=== PATIENT | female | born 2000 | race Caucasian/White ===

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

== ENCOUNTER 2018-08-23 09:07 | Emergency (ER) | payer OTHER ==
[2018-08-23] MEDS ORDERED: SODIUM CHLORIDE 0.9% 1,000 ML IV STA (09:25)
[2018-08-23] MEDS ORDERED: KETOROLAC 30 MG/ML 1 ML VIAL IVP STA (09:25)
--- NOTE | 2018-08-23 09:27 | ED ---
Abdominal Pain HPI - General Chief Complaint: Recheck/Abnormal Lab/Rx Stated Complaint: rib pain Time Seen by Provider: 08/23/18 09:20 Source: patient, RN notes reviewed, old records reviewed Mode of arrival: ambulatory Limitations: no limitations - History of Present Illness Initial Comments: This is a 18-year-old female the ER for evasive Doppler rib pain. Patient has no medical history takes no medications. She's had 2 weeks of bilateral rib pain and bilateral bowel pain with epigastric abdominal pain and nausea. No modifying factors for pain eating and drinking appropriately. Denies any trauma , no diarrhea. No prior history of pancreatitis no drug or alcohol abuse. Patient states the pain currently is left upper quadrant, left rib Complaint: abdominal pain -: week(s) (2) Location: diffuse, LUQ Radiation: epigastric Migration to: LUQ Severity: mild Severity scale (1-10): 4 Quality: cramping, aching Consistency: colicky Improves With: nothing Worsens With: nothing Context: other (None) Associated Symptoms: nausea - Related Data Home Medications Medication Instructions Recorded Confirmed No Known Home Medications 08/23/18 08/23/18 Allergies Allergy/AdvReac Type Severity Reaction Status Date / Time No Known Allergies Allergy Verified 08/23/18 09:10 Review of Systems ROS Statement: Those systems with pertinent positive or pertinent negative responses have been documented in the HPI. ROS Other: All systems not noted in ROS Statement are negative. Past Medical History Past Medical History: No Reported History History of Any Multi-Drug Resistant Organisms: None Reported Additional Past Surgical History / Comment(s): JAW SURGERY Past Psychological History: No Psychological Hx Reported Smoking Status: Current every day smoker Past Alcohol Use History: None Reported Past Drug Use History: None Reported General Exam Limitations: no limitations General appearance: alert, in no apparent distress Head exam: Present: atraumatic, normocephalic, normal inspection Eye exam: Present: normal appearance, PERRL, EOMI. Absent: scleral icterus, conjunctival injection, periorbital swelling ENT exam: Present: normal exam, mucous membranes moist Neck exam: Present: normal inspection. Absent: tenderness, meningismus, lymphadenopathy Respiratory exam: Present: normal lung sounds bilaterally. Absent: respiratory distress, wheezes, rales, rhonchi, stridor Cardiovascular Exam: Present: regular rate, normal rhythm, normal heart sounds. Absent: systolic murmur, diastolic murmur, rubs, gallop, clicks GI/Abdominal exam: Present: soft, normal bowel sounds. Absent: distended, tenderness, guarding, rebound, rigid Extremities exam: Present: normal inspection, full ROM, normal capillary refill. Absent: tenderness, pedal edema, joint swelling, calf tenderness Back exam: Present: normal inspection Neurological exam: Present: alert, oriented X3, CN II-XII intact Psychiatric exam: Present: normal affect, normal mood Skin exam: Present: warm, dry, intact, normal color. Absent: rash Course Vital Signs 08/23/18 09:09 Temperature 98.3 F Pulse Rate 93 Respiratory 20 Rate Blood Pressure 138/87 O2 Sat by Pulse 100 Oximetry - Reevaluation(s) Reevaluation #1: 08/23/18 09:43 Medical record is reviewed Reevaluation #2: 08/23/18 11:05 Mild improvement pain control, patient encouraged Motrin Tylenol at home Medical Decision Making - Medical Decision Making 18-year-old female the ER for evaluation of abdominal pain and rib pain. Lab work and x-rays are negative. This time patient can be discharged home to return if symptoms worsen, follow up with primary care - Lab Data Result diagrams: 08/23/18 10:02 08/23/18 10:02 Lab Results 08/23/18 08/23/18 08/23/18 Range/Units 10:02 10:02 10:02 WBC 6.6 (4.0-11.0) k/uL RBC 4.89 (3.80-5.40) m/uL Hgb 14.2 (11.4-16.0) gm/dL Hct 42.4 (34.0-46.0) % MCV 86.8 (80.0-100.0) fL MCH 29.0 (25.0-35.0) pg MCHC 33.4 (31.0-37.0) g/dL RDW 12.9 (11.5-15.5) % Plt Count 242 (150-450) k/uL Neutrophils % 65 % Lymphocytes % 25 % Monocytes % 7 % Eosinophils % 1 % Basophils % 0 % Neutrophils # 4.3 (1.3-7.7) k/uL Lymphocytes # 1.6 (1.0-4.8) k/uL Monocytes # 0.5 (0-1.0) k/uL Eosinophils # 0.1 (0-0.7) k/uL Basophils # 0.0 (0-0.2) k/uL Sodium 141 (137-145) mmol/L Potassium 4.3 (3.5-5.1) mmol/L Chloride 107 (98-107) mmol/L Carbon Dioxide 24 (22-30) mmol/L Anion Gap 10 mmol/L BUN 8 (7-17) mg/dL Creatinine 0.63 (0.52-1.04) mg/dL Est GFR (CKD-EPI)AfAm >90 (>60 ml/min/1.73 sqM) Est GFR (CKD-EPI)NonAf >90 (>60 ml/min/1.73 sqM) Glucose 89 (74-99) mg/dL Calcium 10.1 (8.4-10.2) mg/dL Total Bilirubin 0.5 (0.2-1.3) mg/dL AST 26 (14-36) U/L ALT 32 (9-52) U/L Alkaline Phosphatase 44 (38-126) U/L Total Protein 7.9 (6.3-8.2) g/dL Albumin 4.5 (3.5-5.0) g/dL Amylase <30 L (30-110) U/L Lipase 70 (23-300) U/L Urine Color Yellow Urine Appearance Clear (Clear) Urine pH 5.5 (5.0-8.0) Ur Specific [place] 1.023 (1.001-1.035) Urine Protein Trace H (Negative) Urine Glucose (UA) Negative (Negative) Urine Ketones Negative (Negative) Urine Blood Negative (Negative) Urine Nitrite Negative (Negative) Urine Bilirubin Negative (Negative) Urine Urobilinogen <2.0 (<2.0) mg/dL Ur Leukocyte Esterase Negative (Negative) - Radiology Data Radiology results: report reviewed (X-ray abdominal series and chest x-rays negative), image reviewed Disposition Clinical Impression: Abdominal pain, Rib pain Disposition: HOME SELF-CARE Instructions: Abdominal Pain (ED), Costochondritis (ED) Is patient prescribed a controlled substance at d/c from ED?: No Referrals: Keyla Collins MD [Primary Care Provider] - 1-2 days
[2018-08-23 10:25] LABS: Basophils % (A) 0 %; Eosinophils # (A) 0.1 k/uL (0-0.7); Eosinophils % (A) 1 %; HCT 42.4 % (34.0-46.0); HGB 14.2 gm/dL (11.4-16.0); Lymphocytes # (A) 1.6 k/uL (1.0-4.8); Lymphocytes % (A) 25 %; MCHC 33.4 g/dL (31.0-37.0); MCV 86.8 fL (80.0-100.0); Mean Platelet Volume 6.7; Monocytes # (A) 0.5 k/uL (0-1.0); Monocytes % (A) 7 %; Neutrophils # (A) 4.3 k/uL (1.3-7.7); Neutrophils % (A) 65 %; Platelet Count 242 k/uL (150-450); RBC 4.89 m/uL (3.80-5.40); RDW 12.9 % (11.5-15.5); WBC 6.6 k/uL (4.0-11.0)
--- NOTE | 2018-08-23 10:26 | XR ---
EXAMINATION TYPE: XR abdomen acute w cxr , 3 VIEWS DATE OF EXAM ORDERED: 08/23/2018 HISTORY: Left upper quadrant pain. COMPARISON: None. FINDINGS: The lungs are clear. Pleural space are clear. The heart is not enlarged. Within the abdomen, the abdominal gas pattern is normal. There is no evidence of obstruction or free air. No unusual calcifications are seen. IMPRESSION: NORMAL CHEST AND ABDOMEN.
[2018-08-23 10:35] LABS: ALT 32 U/L (9-52); AST 26 U/L (14-36); Albumin 4.5 g/dL (3.5-5.0); Alkaline Phosphatase 44 U/L (38-126); Amylase <30 U/L (30-110); Anion Gap 10 mmol/L; Appearance,Urine Clear (Clear); Bilirubin,Urine Negative (Negative); Blood Urea Nitrogen 8 mg/dL (7-17); Blood,Urine Negative (Negative); Calcium 10.1 mg/dL (8.4-10.2); Carbon Dioxide 24 mmol/L (22-30); Chloride 107 mmol/L (98-107); Color,Urine Yellow; Glucose 89 mg/dL (74-99); Glucose,Urine (UA) Negative (Negative); Ketones,Urine Negative (Negative); Leukocyte Esterase,Urine Negative (Negative); Lipase 70 U/L (23-300); Nitrite,Urine Negative (Negative); PH, Urine 5.5 (5.0-8.0); Potassium 4.3 mmol/L (3.5-5.1); Protein,Urine Trace (Negative); Sodium 141 mmol/L (137-145); Specific Gravity,Urine 1.023 (1.001-1.035); Total Bilirubin 0.5 mg/dL (0.2-1.3); Total Protein 7.9 g/dL (6.3-8.2); Urobilinogen,Urine <2.0 mg/dL (<2.0)
[2018-08-23 11:30] VITALS: BP 126/74; PULSE 87; RESP 18; TEMP 98
== END 2018-08-23 11:30 | disposition home or self-care (01) ==
LOC: EC 09:07
DX: R10.84 Generalized abdominal pain (principal); R07.81 Pleurodynia; R11.0 Nausea; F17.200 Nicotine dependence, unspecified, uncomplicated
CPT/HCPCS: 36415; 80053; 82150; 83690; 85025; 81003; 87086; 74022; 99284; 96374; 96361; J1885

== ENCOUNTER 2019-06-12 08:39 | Emergency (ER) | payer OTHER ==
[2019-06-12 08:43] VITALS: BP 132/85; PULSE 67; RESP 18; TEMP 98
--- NOTE | 2019-06-12 09:02 | ED ---
Upper Extremity HPI - General Chief Complaint: Extremity Injury, Upper Stated Complaint: Fell/Shoulder injury Time Seen by Provider: 06/12/19 08:43 Source: patient, RN notes reviewed Mode of arrival: ambulatory Limitations: no limitations - History of Present Illness Initial Comments: This a 19-year-old female presents emergency Department with chief complaint left arm pain. Patient states she was at a concert yesterday states that she fell. Patient has an abrasion to her left elbow but complains more pain in her mid humeral region. Patient states that she is up-to-date on her tetanus denies any head injury no loss conscious. Patient states that she has pain with movement is much better at rest. She denies any lower extremity injuries. - Related Data Previous Rx's Medication Instructions Recorded Ibuprofen [Motrin] 600 mg PO Q8HR PRN #30 tab 06/12/19 Allergies Allergy/AdvReac Type Severity Reaction Status Date / Time No Known Allergies Allergy Verified 06/12/19 08:57 Review of Systems ROS Statement: Those systems with pertinent positive or pertinent negative responses have been documented in the HPI. ROS Other: All systems not noted in ROS Statement are negative. Past Medical History Past Medical History: No Reported History History of Any Multi-Drug Resistant Organisms: None Reported Additional Past Surgical History / Comment(s): JAW SURGERY Past Psychological History: No Psychological Hx Reported Smoking Status: Current every day smoker Past Alcohol Use History: Occasional Past Drug Use History: None Reported General Exam Limitations: no limitations General appearance: alert, in no apparent distress Head exam: Present: atraumatic, normocephalic, normal inspection Eye exam: Present: normal appearance, PERRL, EOMI. Absent: scleral icterus, conjunctival injection, periorbital swelling Neck exam: Present: normal inspection, full ROM. Absent: tenderness Respiratory exam: Present: normal lung sounds bilaterally. Absent: respiratory distress, wheezes, rales, rhonchi, stridor Cardiovascular Exam: Present: regular rate, normal rhythm, normal heart sounds. Absent: systolic murmur, diastolic murmur, rubs, gallop, clicks Extremities exam: Present: other (There is an abrasion on the left elbow patient has no tenderness or dislocation. Patient has mild tenderness to the mid humeral to proximal humeral region, there is no ecchymosis mild swelling there is no tenderness over the clavicle no posterior shoulder tenderness pain with range of motion left shoulder) Skin exam: Present: warm, dry, intact, normal color. Absent: rash Course Vital Signs 06/12/19 08:40 Temperature 98.0 F Pulse Rate 67 Respiratory 18 Rate Blood Pressure 132/85 O2 Sat by Pulse 99 Oximetry Medical Decision Making - Medical Decision Making 19-year-old female presented for fall, left arm pain. X-rays reviewed there is no acute abnormality. Patient's left arm strain. Patient be discharged advised continued anti-inflammatories. Return parameters were discussed. Disposition Clinical Impression: Strain of left upper arm Disposition: HOME SELF-CARE Condition: Stable Instructions (If sedation given, give patient instructions): Shoulder Sprain (ED) Additional Instructions: Please return to the Emergency Department if symptoms worsen or any other concerns. Prescriptions: Ibuprofen [Motrin] 600 mg PO Q8HR PRN #30 tab PRN Reason: Pain Is patient prescribed a controlled substance at d/c from ED?: No Referrals: None,Stated [Primary Care Provider] - 1-2 days Jesse Carrion DO [Medical Doctor] - 1-2 days Time of Disposition: 09:35
--- NOTE | 2019-06-12 09:30 | XR ---
EXAMINATION TYPE: XR humerus LT DATE OF EXAM: 06/12/2019 COMPARISON: None HISTORY: Pain, fall abrasion at elbow TECHNIQUE: 2 view left humerus FINDINGS: No acute fracture or dislocation is evident. Soft tissues appear within normal limits. IMPRESSION: 1. Normal left humerus.
== END 2019-06-12 10:08 | disposition home or self-care (01) ==
LOC: EC 08:39
DX: S46.912A Strain of unspecified muscle, fascia and tendon at shoulder and upper arm level, left arm, initial encounter (principal); S50.312A Abrasion of left elbow, initial encounter; F17.200 Nicotine dependence, unspecified, uncomplicated; W19.XXXA Unspecified fall, initial encounter
CPT/HCPCS: 99283

== ENCOUNTER 2020-01-25 18:31 | Emergency (ER) | payer OTHER ==
[2020-01-25 18:40] VITALS: BP 133/87; PULSE 86; RESP 18; TEMP 97.8
[2020-01-25] MEDS ORDERED: CEPHALEXIN 500MG STARTER PACK 4 CAP BTL PO STA (18:54)
[2020-01-25] MEDS ORDERED: SULFAMETH-TMP DS STARTER PACK 2 TAB BTL PO STA (18:54)
--- NOTE | 2020-01-25 18:55 | ED ---
Lower Extremity Injury HPI - General Chief Complaint: Extremity Injury, Lower Stated Complaint: rt knee infection Time Seen by Provider: 01/25/20 18:39 Source: patient Mode of arrival: ambulatory Limitations: no limitations - History of Present Illness Initial Comments: 19 you feel presents today for chief complaint of possible infection of the right anterior knee. Patient states she fell and sustained an abrasion to the anterior right knee. Patient states it has been redm and now draining pus. She denies any significant spread of redness. Patient denies fevers or general malaise. Patient denies any decreased range of motion of the knee joint or knee joint swelling. Remaining review systems negative patient denies any history of MRSA. Upon arrival patient appears well no acute distress. - Related Data Previous Rx's Medication Instructions Recorded Ibuprofen [Motrin] 600 mg PO Q8HR PRN #30 tab 06/12/19 Cephalexin [Keflex] 500 mg PO Q6HR 7 Days #28 cap 01/25/20 Sulfamethox-Tmp 800-160Mg [Bactrim 1 tab PO Q12HR 7 Days #14 tab 01/25/20 DS 800-160 mg] Allergies Allergy/AdvReac Type Severity Reaction Status Date / Time No Known Allergies Allergy Verified 01/25/20 18:40 Review of Systems ROS Statement: Those systems with pertinent positive or pertinent negative responses have been documented in the HPI. ROS Other: All systems not noted in ROS Statement are negative. Past Medical History Past Medical History: No Reported History History of Any Multi-Drug Resistant Organisms: None Reported Past Surgical History: No Surgical Hx Reported Additional Past Surgical History / Comment(s): JAW SURGERY Past Psychological History: ADD/ADHD, Anxiety Smoking Status: Current every day smoker Past Alcohol Use History: Occasional Past Drug Use History: None Reported General Exam - General Exam Comments Initial Comments: General: The patient is awake and alert, in no distress Eye: +3 mm pupils are equal, round and reactive to light, extra-ocular movements are intact. No nystagmus. There is normal conjunctiva bilaterally. No signs of icterus. Gastrointestinal: Soft, non-distended, non-tender abdomen without masses or organomegaly noted. There is no rebound or guarding present. Musculoskeletal: Normal ROM, no tenderness. Strength 5/5. Sensation intact. Radial pulses equal bilaterally 2+. Neurological: A&O x 3. CN II-XII intact grossly, There are no obvious motor or sensory deficits. Coordination appears grossly intact. Speech is normal. Skin: Skin is warm and dry and no rashes. Abrasion right anterior knee, surrounding redness, mild swelling of skin, no joint swelling, FULL ROM without tenderness right knee. No significant spread of redness. Psychiatric: Cooperative, appropriate mood & affect, normal judgment. Limitations: no limitations Course Vital Signs 01/25/20 18:37 Temperature 97.8 F Pulse Rate 86 Respiratory 18 Rate Blood Pressure 133/87 O2 Sat by Pulse 99 Oximetry Medical Decision Making - Medical Decision Making 19 you feel presenting today for chief complaint of right knee abrasion with suspected infection. There is evidence of cellulitis with purulent drainage no couple fluctuance are developed abscess. Spontaneous a draining. Patient was started on Keflex and Bactrim I discussed return parameters importance of monitoring redness as well as increasing pain or swelling of the knee. This does not appear to be septic joint. Patient flexes at the knee without any difficulty. No fevers the patient does not appear septic. Patient was discharged to appear well after discussi ngcase with Mirna maloney - Lab Data Lab Results 01/25/20 Range/Units 19:02 Urine HCG, Qual Not Detected (Not Detectd) Disposition Clinical Impression: Knee abrasion, Cellulitis Disposition: HOME SELF-CARE Condition: Good Instructions (If sedation given, give patient instructions): Abrasion (ED), Cellulitis (ED) Additional Instructions: Please use medication as discussed. Please follow-up with family doctor in the next 2 days. Please return to emergency room if the symptoms increase or worsen or for any other concerns. Prescriptions: Sulfamethox-Tmp 800-160Mg [Bactrim DS 800-160 mg] 1 tab PO Q12HR 7 Days #14 tab Cephalexin [Keflex] 500 mg PO Q6HR 7 Days #28 cap Is patient prescribed a controlled substance at d/c from ED?: No Referrals: None,Stated [Primary Care Provider] - 1-2 days Time of Disposition: 15:45
== END 2020-01-25 19:35 | disposition home or self-care (01) ==
LOC: EC 18:31
DX: S80.211A Abrasion, right knee, initial encounter (principal); L03.115 Cellulitis of right lower limb; F17.200 Nicotine dependence, unspecified, uncomplicated; W19.XXXA Unspecified fall, initial encounter
CPT/HCPCS: 81025; 99283

== ENCOUNTER 2020-12-31 07:01 | Emergency (ER) | payer OTHER ==
[2020-12-31 07:11] VITALS: BP 108/75; PULSE 73; RESP 18; TEMP 98.2
[2020-12-31] MEDS ORDERED: KETOROLAC 15 MG/ML 1 ML VIAL IVP STA (07:59)
--- NOTE | 2020-12-31 08:02 | ED ---
General Adult HPI - General Chief complaint: Back Pain/Injury Stated complaint: Back Pain Time Seen by Provider: 12/31/20 07:43 Source: patient, RN notes reviewed Mode of arrival: ambulatory Limitations: no limitations - History of Present Illness Initial comments: Patient is a pleasant 20-year-old female presenting to the emergency Department with left-sided thoracic back pain. Patient had an episode around 3 weeks ago that resolved. This episode has been intermittent over the past 3 days. Patient states there is always mild discomfort however she is having muscle spasms near the area of the left scapula. Symptoms do increase with deep breaths. Otherwise no dyspnea. There is also some increase with position changes and movement. No history of chronic similar symptoms. No fevers. No cough. No leg pain or leg swelling. Patient is a smoker. - Related Data Home Medications Medication Instructions Recorded Confirmed Acetaminophen Tab [Tylenol] 650 mg PO Q4H PRN 12/31/20 12/31/20 Previous Rx's Medication Instructions Recorded Cyclobenzaprine [Flexeril] 10 mg PO TID PRN #12 tablet 12/31/20 Ibuprofen [Motrin] 600 mg PO Q6HR PRN #20 tab 12/31/20 Allergies Allergy/AdvReac Type Severity Reaction Status Date / Time No Known Allergies Allergy Verified 12/31/20 09:25 Review of Systems ROS Statement: Those systems with pertinent positive or pertinent negative responses have been documented in the HPI. ROS Other: All systems not noted in ROS Statement are negative. Constitutional: Denies: fever Eyes: Denies: eye pain ENT: Denies: ear pain Respiratory: Denies: cough, dyspnea Cardiovascular: Denies: edema Endocrine: Denies: fatigue Gastrointestinal: Denies: abdominal pain Genitourinary: Denies: dysuria Musculoskeletal: Reports: as per HPI Skin: Denies: rash Neurological: Denies: weakness Past Medical History Past Medical History: No Reported History History of Any Multi-Drug Resistant Organisms: None Reported Past Surgical History: No Surgical Hx Reported Additional Past Surgical History / Comment(s): JAW SURGERY Past Psychological History: ADD/ADHD, Anxiety Smoking Status: Current every day smoker Past Alcohol Use History: Occasional Past Drug Use History: None Reported General Exam Limitations: no limitations General appearance: alert, in no apparent distress Head exam: Present: normocephalic Eye exam: Present: normal appearance Neck exam: Present: normal inspection Respiratory exam: Present: normal lung sounds bilaterally Cardiovascular Exam: Present: regular rate, normal rhythm GI/Abdominal exam: Present: soft. Absent: tenderness Extremities exam: Present: normal inspection. Absent: pedal edema, calf tenderness Back exam: Present: other (Mild tenderness left trapezius region, between the vertebrae and scapula approximately T3 through T7/8.) Neurological exam: Present: alert. Absent: motor sensory deficit Psychiatric exam: Present: normal affect, normal mood Skin exam: Present: normal color Course Vital Signs 12/31/20 07:04 Temperature 98.2 F Pulse Rate 73 Respiratory 18 Rate Blood Pressure 108/75 O2 Sat by Pulse 98 Oximetry EKG Findings - EKG Comments: EKG Findings:: Normal sinus rhythm at 69. NC 1:30. QRS 88. QT 398. QTC 426. Normal axis. Low QRS. No acute ST change. Medical Decision Making - Medical Decision Making Patient reevaluated and does feel somewhat better. Patient updated on results. - Lab Data Lab Results 12/31/20 Range/Units 08:48 D-Dimer 0.21 (<0.60) mg/L FEU - Radiology Data Radiology results: image reviewed (Chest x-ray shows no acute process) Disposition Clinical Impression: Thoracic back pain Disposition: HOME SELF-CARE Condition: Stable Instructions (If sedation given, give patient instructions): Back Pain (ED) Additional Instructions: Please do follow-up with primary care physician in the next couple days for recheck. Return for difficulty in breathing, fevers, worsening or change in symptoms or other concerns. Prescription for Motrin 600 and muscle relaxers have been sent to your pharmacy[facility] Prescriptions: Cyclobenzaprine [Flexeril] 10 mg PO TID PRN #12 tablet PRN Reason: Pain Ibuprofen [Motrin] 600 mg PO Q6HR PRN #20 tab PRN Reason: Pain Is patient prescribed a controlled substance at d/c from ED?: No Referrals: Mainor Maldonado [STAFF PHYSICIAN] - 1-2 days Time of Disposition: 09:29
--- NOTE | 2020-12-31 09:15 | XR ---
EXAMINATION TYPE: XR chest 2V DATE OF EXAM: 12/31/2020 COMPARISON: 11/28/2010 HISTORY: Chest pain TECHNIQUE: Frontal and lateral views of the chest are obtained. FINDINGS: There is no focal air space opacity. No evidence for pneumothorax. No pleural effusion. The cardiac silhouette size is within normal limits. The osseous structures are grossly intact. IMPRESSION: 1. No acute cardiopulmonary process.
== END 2020-12-31 09:58 | disposition home or self-care (01) ==
LOC: EC 07:01
DX: M54.6 Pain in thoracic spine (principal); F17.200 Nicotine dependence, unspecified, uncomplicated; Z79.1 Long term (current) use of non-steroidal anti-inflammatories (NSAID); F41.9 Anxiety disorder, unspecified
CPT/HCPCS: 36415; 93005; 85379; 71046; 99284; 96374; J1885

== ENCOUNTER 2024-08-12 16:33 | Outpatient (CLI) | payer OTHER ==
[2024-08-12 17:07] LABS: Basophils % (A) 0 %; Eosinophils # (A) 0.1 k/uL (0-0.7); Eosinophils % (A) 1 %; HCT 37.7 % (34.0-46.0); HGB 12.4 gm/dL (11.4-16.0); Lymphocytes # (A) 1.5 k/uL (1.0-4.8); Lymphocytes % (A) 13 %; MCH 29.6 pg (25.0-35.0); MCHC 32.9 g/dL (31.0-37.0); MCV 89.9 fL (80.0-100.0); Mean Platelet Volume 7.4; Monocytes # (A) 0.6 k/uL (0-1.0); Monocytes % (A) 5 %; Neutrophils # (A) 9.4 k/uL (1.3-7.7); Neutrophils % (A) 80 %; Platelet Count 273 k/uL (150-450); RBC 4.19 m/uL (3.80-5.40); RDW 13.2 % (11.5-15.5); WBC 11.7 k/uL (3.8-10.6)
[2024-08-12 17:19] LABS: Uric Acid 2.4 mg/dL (3.7-7.4)
[2024-08-12 17:22] LABS: Appearance,Urine Cloudy (Clear); Bilirubin,Urine Negative (Negative); Blood,Urine Negative (Negative); Color,Urine Colorless; Glucose,Urine (UA) Negative (Negative); Ketones,Urine Negative (Negative); Leukocyte Esterase,Urine Negative (Negative); Nitrite,Urine Negative (Negative); Protein,Urine Negative (Negative); RBC,Urine 1 /hpf (0-5); Specific Gravity,Urine 1.006 (1.001-1.035); Squamous Epithelial Cell,Urine 7 /hpf (0-4); Urobilinogen,Urine <2.0 mg/dL (<2.0); WBC,Urine 2 /hpf (0-5)
[2024-08-12 17:40] VITALS: BP 127/73; PULSE 74; RESP 18; TEMP 98
== END 2024-08-12 17:40 | disposition home or self-care (01) ==
LOC: FBPOP 16:33
PROVIDERS: ATTEND Obstetrics & Gynecology
DX: O14.93 Unspecified pre-eclampsia, third trimester (principal); Z3A.35 35 weeks gestation of pregnancy; F17.210 Nicotine dependence, cigarettes, uncomplicated
CPT/HCPCS: 59025; 81001; 84450; 84460; 84550; 85025; 99213

== ENCOUNTER 2024-08-13 07:45 | Inpatient (IN) | payer OTHER ==
[2024-08-13] MEDS ORDERED: CARBOPROST TROMETHAMINE 250 MCG/ML 1 ML AMP IM PRN (08:47)
[2024-08-13] MEDS ORDERED: METHYLERGONOVINE 0.2 MG/ML 1 ML AMP IM PRN (08:47)
[2024-08-13] MEDS ORDERED: LIDOCAINE 0.5% (PF) 5 MG/ML (50 ML SDV) SQ PRN (08:47)
[2024-08-13] MEDS ORDERED: miSOPROStoL 200 MCG TAB RECTAL PRN (08:47)
[2024-08-13] MEDS ORDERED: OXYTOCIN 10 UNIT/ML 1 ML VIAL IM PRN (08:47)
[2024-08-13] MEDS ORDERED: TRANEXAMIC 1,000 MG/100ML-NACL 1,000 MG in EMPTY BAG 1 BAG IV PRN (08:47)
[2024-08-13] MEDS ORDERED: TERBUTALINE 1 MG/ML VIAL SQ PRN (08:47)
[2024-08-13] MEDS ORDERED: miSOPROStoL 200 MCG TAB PO PRN (08:47)
[2024-08-13] MEDS ORDERED: BUTORPHANOL 1 MG/ML 1 ML VIAL IV PRN (08:50)
[2024-08-13 09:09] LABS: Amphetamine Screen,Urine Not Detected (NotDetected); Barbiturate Screen,Urine Not Detected (NotDetected); Benzodiazepines Screen,Urine Not Detected (NotDetected); Cocaine Screen,Urine Not Detected (NotDetected); Methadone Screen, Urine Not Detected (NotDetected); Opiate Screen,Urine Not Detected (NotDetected); Oxycodone Screen, Urine Not Detected (NotDetected); Phencyclidine Screen,Urine Not Detected (NotDetected); Tricyclic Antidepressant,Urine Not Detected (NotDetected); Urn Cannabinoid Scrn Detected (NotDetected)
[2024-08-13] MEDS: LACTATED RINGERS 1,000 ML IV SCH (09:45)
[2024-08-13] MEDS: PENICILLIN G POTASSIUM 5,000,000 UNIT in DEXTROSE 5% IN WATER 100 ML IVPB STA (09:52)
[2024-08-13] MEDS: OXYTOCIN 30 UNITS/500 ML NS 30 UNIT in SALINE 1 500ML.BAG IV SCH (10:00)
[2024-08-13 10:14] LABS: Basophils % (A) 0 %; Eosinophils # (A) 0.1 k/uL (0-0.7); Eosinophils % (A) 1 %; HCT 39.6 % (34.0-46.0); HGB 13.2 gm/dL (11.4-16.0); Lymphocytes # (A) 1.3 k/uL (1.0-4.8); Lymphocytes % (A) 13 %; MCH 29.7 pg (25.0-35.0); MCHC 33.3 g/dL (31.0-37.0); MCV 89.2 fL (80.0-100.0); Mean Platelet Volume 7.5; Monocytes # (A) 0.7 k/uL (0-1.0); Monocytes % (A) 7 %; Neutrophils # (A) 8.1 k/uL (1.3-7.7); Neutrophils % (A) 79 %; Platelet Count 307 k/uL (150-450); RBC 4.44 m/uL (3.80-5.40); RDW 13.3 % (11.5-15.5); WBC 10.3 k/uL (3.8-10.6)
--- NOTE | 2024-08-13 11:01 | P.HPOB ---
History of Present Illness H&P Date: 08/13/24 Chief Complaint: 35-2/7 weeks, spontaneous rupture of membranes, labor The patient is a 24-year-old 1 para 0 admitted at 35-2/7 weeks as established by last menstrual period and confirmed by early ultrasound. She is admitted with documented spontaneous rupture of membranes for clear fluid. On admission, all signs are reassuring with a category 1 heart rate tracing. Her has reportedly been uncomplicated. She is a late transfer to our office having not been seen by myself yet in the office but seen by the nursing staff yesterday. She had most of her care carried out in [facility] and then her physician apparently declined to further see her as she missed several appointments in a row secondary to car problems. Group B strep status is at this time undetermined. Obstetrical history: 1 para 0 with current statistics listed in history of present illness. EDC of 09/15/2024 was determined by last menstrual period and confirmed by 8-week ultrasound. Laboratory workup demonstrates a blood type of B+ with a negative antibody screen. Rubella status is immune. The remainder of the laboratory workup was within normal limits. 1 hour Glucola was normal and group B strep status is not yet determined. Gynecologic history: Unremarkable with no history of any infections to include STDs. Review of Systems Review of systems is confined to history of present illness. Past Medical History Past Medical History: No Reported History History of Any Multi-Drug Resistant Organisms: None Reported Past Surgical History: No Surgical Hx Reported Additional Past Surgical History / Comment(s): JAW SURGERY 2014 Past Anesthesia/Blood Transfusion Reactions: No Reported Reaction Past Psychological History: ADD/ADHD, Anxiety Smoking Status: Current every day smoker Past Alcohol Use History: Occasional Past Drug Use History: None Reported - Past Family History Mother Family Medical History: No Reported History Medications and Allergies Home Medications Medication Instructions Recorded Confirmed Type Acetaminophen Tab [Tylenol] 650 mg PO Q4H PRN 12/31/20 08/13/24 History Pedi Multivit No.25/Folic Acid 1 tab PO ONCE 08/13/24 08/13/24 History [Flintstones Multivit Chew Tab] Allergies Allergy/AdvReac Type Severity Reaction Status Date / Time No Known Allergies Allergy Verified 08/13/24 08:07 Exam Vital Signs Temp Pulse Resp BP Pulse Ox 08/13/24 08:57 97.9 F 61 16 141/91 98 08/13/24 08:06 97.9 F 61 16 141/91 98 Intake and Output 08/12/24 08/13/24 08/13/24 22:59 06:59 14:59 Other: Weight 92.079 kg In general, this is a well-developed, well-nourished white female in no acute distress. Her heart has a regular rhythm and rate without murmur. Her lungs are clear to auscultation bilaterally in all langley. Her abdomen is gravid, nondistended, has normal active bowel sounds, soft, nontender, and without any palpable masses aside from the uterine fundus. Her extremities are without any cyanosis, clubbing, or significant edema and are nontender to palpation bilaterally. Digital cervical examination performed by the nursing staff demonstrates her cervix to be 1+ centimeters dilated, 60% effaced, with the vertex and presentation at -2 station. Spontaneous rupture of membranes is confirmed. Results Result Diagrams: 08/13/24 09:48 Abnormal Lab Results - Last 24 Hours (Table) 08/13/24 08/13/24 Range/Units 08:35 09:48 Neutrophils # 8.1 H (1.3-7.7) k/uL U Marijuana (THC) Screen Detected H (NotDetected) Assessment and Plan (1) premature rupture of membranes Current Visit: Yes Status: Acute Code(s): O42.919 - PRETRM KEL ROM, UNSP TIME BETW RUPT AND ONST LABR, UNSP TRI SNOMED Code(s): 662390557 Plan: The patient has been admitted for active management of labor. She has had antibiotic prophylaxis started for unknown group B strep status. She additionally has had Pitocin augmentation started. She will have close maternal and surveillance and expectant management will be practiced. She is a good candidate for either IV or epidural analgesia, whichever she may choose. I have discussed with her that there is a moderate to high risk of short-term issues with prematurity that may require the infant to remain in the nursery for a period of time, likely longer than the patient's hospital stay.
[2024-08-13] MEDS ORDERED: fentaNYL (PF) 50 MCG/ML 5 ML AMP ONE (14:05)
[2024-08-13] MEDS ORDERED: ROPIVACAINE 5 MG/ML 30 ML VIAL ONE (14:05)
[2024-08-13] MEDS ORDERED: SODIUM CHLORIDE 0.9% 250 ML BAG ONE (14:05)
[2024-08-13] MEDS: PENICILLIN G POTASSIUM 2,500,000 UNIT in DEXTROSE 5% IN WATER 100 ML IVPB SCH (15:03)
[2024-08-13] MEDS ORDERED: ZOLPIDEM 5 MG TAB PO PRN (20:16)
[2024-08-13] MEDS ORDERED: diphenhydrAMINE 50 MG CAP PO PRN (20:16)
[2024-08-13] MEDS ORDERED: LANOLIN CREAM 1 GM TUBE TOPICAL PRN (20:16)
[2024-08-13] MEDS ORDERED: HYDROCORTISONE 2.5% RECTAL CREAM 30 GM TUBE RECTAL PRN (20:16)
[2024-08-13] MEDS ORDERED: SIMETHICONE 80 MG CHEWABLE PO PRN (20:16)
[2024-08-13] MEDS ORDERED: BENZOCAINE/MENTHOL SPRAY 1 GM/SPRAY AEROSOL TOPICAL PRN (20:16)
[2024-08-13] MEDS ORDERED: diphenhydrAMINE 50 MG/ML 1 ML VIAL IVP PRN ×2 (20:16)
[2024-08-13] MEDS ORDERED: diphenhydrAMINE 25 MG CAP PO PRN (20:16)
[2024-08-13] MEDS: ROPIVACAINE 225 MG, fentaNYL (PF). 450 MCG in SODIUM CHLORIDE 0.9% 171 ML EPIDURAL ONE (20:21)
[2024-08-13] MEDS: IBUPROFEN 800 MG TAB PO SCH (20:28)
[2024-08-14] MEDS: ACETAMINOPHEN TAB 500 MG TAB PO SCH (00:21)
[2024-08-14] MEDS: SENNOSIDES-DOCUSATE SODIUM 1 EACH TAB PO SCH (08:04)
[2024-08-14 08:15] LABS: Basophils % (A) 0 %; Eosinophils % (A) 0 %; HCT 38.6 % (34.0-46.0); HGB 12.2 gm/dL (11.4-16.0); Lymphocytes # (A) 1.6 k/uL (1.0-4.8); Lymphocytes % (A) 12 %; MCH 28.4 pg (25.0-35.0); MCHC 31.5 g/dL (31.0-37.0); MCV 90.2 fL (80.0-100.0); Mean Platelet Volume 7.2; Monocytes # (A) 0.9 k/uL (0-1.0); Monocytes % (A) 7 %; Neutrophils # (A) 10.5 k/uL (1.3-7.7); Neutrophils % (A) 80 %; Platelet Count 265 k/uL (150-450); RBC 4.28 m/uL (3.80-5.40); RDW 13.3 % (11.5-15.5); WBC 13.2 k/uL (3.8-10.6)
--- NOTE | 2024-08-14 08:47 | P.PROBDLV ---
Vaginal Delivery Note - . Vaginal Delivery Note: 24-year-old presented at 35 weeks and 4 days complaining of spontaneous rupture of membranes. Her cervix was 1-2 cm dilated, 60% effaced, -2 station. She was not charly and heart tones are category 1. Pitocin augmentation was started. The patient progressed slowly throughout the day and was completely dilated by 1825. She pushed, and delivered a viable female over intact perineum under epidural anesthesia at 192. Head delivered OA, anterior shoulder delivered gentle downward guidance followed by posterior shoulder and rest of body. Nose and mouth bulb suctioned, cord clamped and cut, infant placed mother's abdomen. Apgars at 1 minute was 5, 5 minutes it was 9 at 10 minutes 9. Weight 3 lbs. 13 oz. Placenta delivered spontaneous a, intact with three-vessel cord at 192. Vagina, cervix, perineum inspected. No lacerations noted. Estimated blood loss 50 mL. Mother and baby in stable condition.
--- NOTE | 2024-08-14 08:48 | P.PNOBGVD ---
Subjective - Subjective Principal diagnosis: S/P normal vaginal delivery day #1 Interval history: Patient seen and examined. Denies nausea, vomiting, chest pain, shortness of breath or calf pain. Patient reports: Reports appetite normal, Reports voiding normally, Reports pain well controlled, Reports ambulating normally Objective - Latest Vital Signs Latest vital signs: Vital Signs Temp Pulse Resp BP Pulse Ox 08/14/24 07:51 98.4 F 77 16 157/87 08/14/24 00:00 98.5 F 71 16 148/84 08/13/24 21:25 97.2 F L 83 16 138/78 08/13/24 21:10 83 16 138/77 08/13/24 20:55 90 16 144/85 08/13/24 20:40 86 16 140/72 08/13/24 20:25 88 16 145/72 08/13/24 20:10 91 16 151/79 08/13/24 19:55 86 16 149/78 08/13/24 19:40 102 H 16 215/99 08/13/24 19:25 97.4 F L 106 H 16 153/118 08/13/24 08:57 97.9 F 61 16 141/91 98 Intake and Output 08/13/24 08/14/24 08/14/24 22:59 06:59 14:59 Intake Total 319.433 Output Total 396 Balance -76.567 Intake: Intake, IV Titration 319.433 Amount Oxytocin 30 Units/500 ml 319.433 Ns 30 unit In Saline 1 500ml.bag @ Per Protocol IV .Q0M [facility] Rx#:[id number] Output: Urine 20 Emesis 50 Output, Quantitative 326 Blood Loss Other: # Voids 1 1 1 - Exam Lungs: bilateral: normal Chest: Normal S1, Normal S2 Extremities: Present: normal Abdomen: Present: normal appearance, soft Uterus: Present: normal, firm - Labs Labs: Abnormal Lab Results - Last 24 Hours (Table) 08/13/24 08/13/24 08/14/24 Range/Units 08:35 09:48 07:30 WBC 13.2 H (3.8-10.6) k/uL Neutrophils # 8.1 H 10.5 H (1.3-7.7) k/uL U Marijuana (THC) Screen Detected H (NotDetected) Assessment and Plan (1) Status post normal vaginal delivery Current Visit: Yes Status: Acute Code(s): [id number] - SNOMED Code(s): 212258566 Plan: 1. cont pp care
[2024-08-15] MEDS: LABETALOL 100 MG TAB PO SCH (00:49)
--- NOTE | 2024-08-15 09:09 | P.PNOBGVD ---
Subjective - Subjective Principal diagnosis: Status post normal vaginal delivery day #2 Interval history: Patient seen and examined this morning. She had some elevated blood pressures overnight and this morning. no headache, vision changes or RUQ pain. We'll start her on labetalol 100 mg twice a day. She is also complaining of some anxiety especially with the baby being in the nursery and her boyfriend needs a heart catheterization. Her grandmother who was like a mother to her 3 months ago and she is still processing this. We talked about Zoloft and we will start that today. Patient reports: Reports appetite normal, Reports voiding normally, Reports pain well controlled, Reports ambulating normally Objective - Latest Vital Signs Latest vital signs: Vital Signs Temp Pulse Resp BP 08/15/24 07:34 98.5 F 71 16 156/95 08/15/24 04:01 65 16 142/87 08/15/24 00:00 98.0 F 80 16 167/99 08/14/24 20:00 98.7 F 90 145/88 08/14/24 16:00 98.3 F 90 16 150/93 - Exam Lungs: bilateral: normal Chest: Normal S1, Normal S2 Extremities: Present: normal Abdomen: Present: normal appearance, soft Uterus: Present: normal, firm Assessment and Plan (1) Status post normal vaginal delivery Current Visit: Yes Status: Acute Code(s): [id number] - SNOMED Code(s): 381518793 (2) Gestational hypertension Current Visit: Yes Status: Acute Code(s): O13.9 - GESTATIONAL HTN W/O SIGNIFICANT PROTEINURIA, UNSP TRIMESTER SNOMED Code(s): 26684676 Plan: 1. labetalol 100mg bid 2. zoloft 50mg 3. monitor bp closeley
[2024-08-15] MEDS: SERTRALINE 50 MG TAB PO SCH (12:39)
[2024-08-15] MEDS: LABETALOL 200 MG TAB PO STA (20:11)
[2024-08-16 01:37] LABS: Basophils % (A) 0 %; Eosinophils # (A) 0.1 k/uL (0-0.7); Eosinophils % (A) 1 %; HCT 34.3 % (34.0-46.0); HGB 11.6 gm/dL (11.4-16.0); Lymphocytes # (A) 1.2 k/uL (1.0-4.8); Lymphocytes % (A) 14 %; MCH 29.8 pg (25.0-35.0); MCHC 33.7 g/dL (31.0-37.0); MCV 88.4 fL (80.0-100.0); Mean Platelet Volume 7.2; Monocytes # (A) 0.4 k/uL (0-1.0); Monocytes % (A) 5 %; Neutrophils # (A) 6.4 k/uL (1.3-7.7); Neutrophils % (A) 78 %; Platelet Count 255 k/uL (150-450); RBC 3.88 m/uL (3.80-5.40); RDW 13.3 % (11.5-15.5); WBC 8.2 k/uL (3.8-10.6)
[2024-08-16 01:39] LABS: Appearance,Urine Clear (Clear); Bilirubin,Urine Negative (Negative); Blood,Urine Small (Negative); Color,Urine Colorless; Glucose,Urine (UA) Negative (Negative); Ketones,Urine Negative (Negative); Leukocyte Esterase,Urine Negative (Negative); Mucus,Urine Rare /hpf; Nitrite,Urine Negative (Negative); Protein,Urine Trace (Negative); RBC,Urine 1 /hpf (0-5); Specific Gravity,Urine 1.018 (1.001-1.035); Squamous Epithelial Cell,Urine <1 /hpf (0-4); Urobilinogen,Urine <2.0 mg/dL (<2.0); WBC,Urine 1 /hpf (0-5)
[2024-08-16 01:47] LABS: INR 0.9 (<1.2); Partial Thromboplastin Time 23.1 sec (22.0-30.0); Prothrombin Time 9.9 sec (10.0-12.5)
[2024-08-16 01:49] LABS: ALT 21 U/L (4-34); AST 37 U/L (14-36); African American GFR (CKD) >90 (>60 ml/min/1.73 sqM); Blood Urea Nitrogen 12 mg/dL (7-17); LDH 202 U/L (120-246); Non-African American GFR(CKD) >90 (>60 ml/min/1.73 sqM); Uric Acid 3.2 mg/dL (3.7-7.4)
[2024-08-16 01:51] LABS: Creatinine,Urine Random 91.6 mg/dL; Protein/Creatinine Ratio,Urine 0.24
[2024-08-16] MEDS: LABETALOL 200 MG TAB PO STA (02:59)
[2024-08-16] MEDS ORDERED: LABETALOL 100 MG TAB PO SCH (08:00)
[2024-08-16] MEDS: LABETALOL 200 MG TAB PO SCH ×2 (08:42→16:26)
--- NOTE | 2024-08-16 09:21 | P.PNOBGVD ---
Subjective - Subjective Interval history: Patient denies any signs or symptoms of hypertension or preeclampsia at this time. Patient reports: Reports appetite normal, Reports voiding normally, Reports pain well controlled, Reports ambulating normally : doing well, in NICU Objective - Latest Vital Signs Latest vital signs: Vital Signs Temp Pulse Resp BP 08/16/24 08:31 98.6 F 74 16 160/104 08/16/24 02:50 67 16 159/94 08/16/24 01:10 97.9 F 67 16 170/100 08/15/24 22:37 152/91 08/15/24 20:00 99.1 F 80 16 179/117 08/15/24 15:00 98.7 F 77 16 158/104 Intake and Output 08/15/24 08/16/24 08/16/24 22:59 06:59 14:59 Output Total 100 Balance -100 Output: Urine 100 Straight 100 - Exam Extremities: Present: normal Abdomen: Present: normal appearance, soft Uterus: Present: normal, firm (Uterine fundus is tonic and nontender below the umbilicus.) - Labs Labs: Abnormal Lab Results - Last 24 Hours (Table) 08/16/24 08/16/24 08/16/24 Range/Units 01:26 01:26 01:26 PT 9.9 L (10.0-12.5) sec Uric Acid 3.2 L (3.7-7.4) mg/dL AST 37 H (14-36) U/L Urine Protein Trace H (Negative) Urine Blood Small H (Negative) Urine Mucus Rare H (None) /hpf Assessment and Plan (1) premature rupture of membranes Current Visit: Yes Status: Acute Code(s): O42.919 - PRETRM KEL ROM, UNSP TIME BETW RUPT AND ONST LABR, UNSP TRI SNOMED Code(s): 915998586 (2) Normal spontaneous vaginal delivery Current Visit: Yes Status: Acute Code(s): O80 - ENCOUNTER FOR FULL-TERM UNCOMPLICATED DELIVERY SNOMED Code(s): 62591221 (3) Gestational hypertension Current Visit: Yes Status: Acute Code(s): O13.9 - GESTATIONAL HTN W/O SIGNIFICANT PROTEINURIA, UNSP TRIMESTER SNOMED Code(s): 60727917 Plan: It is possible the patient is an undiagnosed chronic hypertensive. She continues to have moderately elevated blood pressures despite labetalol 200 mg twice daily. I will increase her dose to labetalol 200 mg 3 times daily to see if we can affect the lower blood pressures. She will remain in the hospital until her blood pressures are under good control. The infant remains in the special care nursery secondary to issues of prematurity but is otherwise doing well.
[2024-08-17 08:49] VITALS: BP 157/89; PULSE 91; RESP 16; TEMP 98.9
--- NOTE | 2024-08-17 09:10 | P.DS ---
Providers Date of admission: 08/13/24 08:36 Expected date of discharge: 08/17/24 Attending physician: Miki Humphries Primary care physician: Stated None - Discharge Diagnosis(es) (1) premature rupture of membranes Current Visit: Yes Status: Acute (2) Normal spontaneous vaginal delivery Current Visit: Yes Status: Acute (3) Gestational hypertension Current Visit: Yes Status: Acute Hospital Course: The patient is a 24-year-old 1 para 0 admitted at 35-2/7 weeks by good dating parameters. She is admitted with documented spontaneous rupture of membranes and early labor with all signs reassuring, category 1 heart rate tracing. She has not been seen in our office prior to her admission aside from 1 visit for an intake with the nurse but has had care in [facility] prior to this. Her has reportedly been uncomplicated. Group B strep status had not been determined. As a result, she had antibiotic prophylaxis started as well as Pitocin augmentation as she was remote from delivery. She made progress throughout the day and had an epidural catheter placed for analgesia. She ultimately progressed to complete and then pushed to a normal spontaneous vaginal delivery of a viable 3 pound 13 ounce baby girl with Apgars of 5 at 1 minute, 9 at 5 minutes, and 9 at 10 minutes. The patient's course was complicated by moderately to significantly elevated blood pressures. Workup for preeclampsia was negative and she was started on labetalol and ultimately landed on 200 mg 3 times daily to control her blood pressures. She was deemed stable for discharge on day #4 and was discharged home to follow-up in the office in 6 weeks time routinely. Discharge instructions included calling for any significantly increased bleeding or foul-smelling lochia, significantly increased fever abdominal pain, perineal complaints, breast complaints, or anything else that concerned her. She was additionally instructed to have nothing in the vagina for at least 6 weeks time to include intercourse. She understood her instructions and agrees to follow-up as noted above. Discharge medications included [id number] analgesic pain medications as well as a prescription for labetalol 200 mg, 1 p.o. 3 times daily, #90 dispensed with 3 refills. She was additionally provided with a prescription for Zoloft 50 mg 1 p.o. daily, #90 dispensed with 3 refills. Maternal blood type is B+ and rubella status is immune. Procedures: #1. Antibiotic prophylaxis #2. Pitocin augmentation #3. Epidural analgesia #4. Normal spontaneous vaginal delivery #5. Antihypertensive therapy Patient Condition at Discharge: Stable Plan - Discharge Summary New Discharge Prescriptions: No Action Pedi Multivit No.25/Folic Acid [Flintstones Multivit Chew Tab] 1 tab PO ONCE Acetaminophen Tab [Tylenol] 650 mg PO Q4H PRN PRN Reason: Pain Discharge Medication List Acetaminophen Tab [Tylenol] 650 mg PO Q4H PRN 12/31/20 [History] Pedi Multivit No.25/Folic Acid [Flintstones Multivit Chew Tab] 1 tab PO ONCE 08/13/24 [History] Follow up Appointment(s)/Referral(s): Miki Humphries MD [STAFF PHYSICIAN] - 09/28/24 9:00 am Discharge Disposition: HOME SELF-CARE
== END 2024-08-17 12:55 | disposition home or self-care (01) | DRG 560 ==
LOC: FBPOP 07:45 → 4FBP 08:36
PROVIDERS: ADMIT Obstetrics & Gynecology; ATTEND Obstetrics & Gynecology
PROC: 10E0XZZ Delivery of Products of Conception, External Approach (ICD-10-PCS; principal; 2024-08-13)
DX: O42.013 Preterm premature rupture of membranes, onset of labor within 24 hours of rupture, third trimester (principal); Z37.0 Single live birth; O10.92 Unspecified pre-existing hypertension complicating childbirth; O99.344 Other mental disorders complicating childbirth; O99.334 Smoking (tobacco) complicating childbirth; F17.210 Nicotine dependence, cigarettes, uncomplicated; F41.9 Anxiety disorder, unspecified; Z3A.35 35 weeks gestation of pregnancy; Z63.4 Disappearance and death of family member; Z91.198 Patient's noncompliance with other medical treatment and regimen for other reason
CPT/HCPCS: 59025; 80306; 81001; 82565; 82570; 83615; 84112; 84156; 84450; 84460; 84520; 84550; 85025; 85384; 85610; 85730; 86850; 86900; 86901; 88307; 99213

== ENCOUNTER 2024-09-02 19:09 | Emergency (ER) | payer OTHER ==
[2024-09-02 19:21] VITALS: BP 162/112; PULSE 107; RESP 18; TEMP 99.9
--- NOTE | 2024-09-02 19:33 | ED ---
Psych HPI - General Source: patient, RN notes reviewed, old records reviewed Mode of arrival: ambulatory Limitations: no limitations - History of Present Illness MD Complaint: suicidal ideation, feels depressed -: days(s) Associated Psychiatric Symptoms: homicidal ideation, racing thoughts, visual hallucinations, delusions History of same: Yes Quality: constant Improves With: none Worsens With: none Context: not taking psychiatric medications, significant life stressor Associated Symptoms: denies other symptoms Treatments Prior to Arrival: placed on mental health hold <Edil Jarvis - Last Filed: 09/02/24 21:36> <Brown Trevino - Last Filed: 09/03/24 01:00> - General Chief Complaint: Psychiatric Symptoms Stated Complaint: mental health, post- Time Seen by Provider: 09/02/24 19:27 - History of Present Illness Initial Comments: This is a 24-year-old female to ER with postoperative depression severe depression here in the ER after issues, patient recently released from the hospital today with baby but is suffering from severe anxiety and depression with suspected underlying psychiatric illness (Edil Jarvis) - Related Data Home Medications Medication Instructions Recorded Confirmed Acetaminophen Tab [Tylenol] 650 mg PO Q4H PRN 12/31/20 08/13/24 Pedi Multivit No.25/Folic Acid 1 tab PO ONCE 08/13/24 08/13/24 [Flintstones Multivit Chew Tab] Allergies Allergy/AdvReac Type Severity Reaction Status Date / Time No Known Allergies Allergy Verified 09/02/24 19:21 Review of Systems ROS Other: All systems not noted in ROS Statement are negative. <Edil Jarvis - Last Filed: 09/02/24 21:36> ROS Other: All systems not noted in ROS Statement are negative. <Brown Trevino - Last Filed: 09/03/24 01:00> ROS Statement: Those systems with pertinent positive or pertinent negative responses have been documented in the HPI. Past Medical History Past Medical History: No Reported History History of Any Multi-Drug Resistant Organisms: None Reported Past Surgical History: No Surgical Hx Reported Additional Past Surgical History / Comment(s): JAW SURGERY 2015 Past Anesthesia/Blood Transfusion Reactions: No Reported Reaction Past Psychological History: ADD/ADHD, Anxiety, Depression Smoking Status: Current every day smoker, Vaper Past Alcohol Use History: Occasional Past Drug Use History: None Reported - Past Family History Mother Family Medical History: No Reported History <Edil Jarvis - Last Filed: 09/02/24 21:36> General Exam General appearance: alert, in no apparent distress Head exam: Present: atraumatic, normocephalic, normal inspection Eye exam: Present: normal appearance, PERRL, EOMI. Absent: scleral icterus, conjunctival injection, periorbital swelling ENT exam: Present: normal exam, mucous membranes moist Neck exam: Present: normal inspection. Absent: tenderness, meningismus, lymphadenopathy Respiratory exam: Present: normal lung sounds bilaterally. Absent: respiratory distress, wheezes, rales, rhonchi, stridor Cardiovascular Exam: Present: regular rate, normal rhythm, normal heart sounds. Absent: systolic murmur, diastolic murmur, rubs, gallop, clicks GI/Abdominal exam: Present: soft, normal bowel sounds. Absent: distended, tenderness, guarding, rebound, rigid Extremities exam: Present: normal inspection, full ROM, normal capillary refill. Absent: tenderness, pedal edema, joint swelling, calf tenderness Back exam: Present: normal inspection Neurological exam: Present: alert, oriented X3, CN II-XII intact Psychiatric exam: Present: normal affect, normal mood Skin exam: Present: warm, dry, intact, normal color. Absent: rash <Edil Jarvis - Last Filed: 09/02/24 21:36> Course <Edil Jarvis - Last Filed: 09/02/24 21:36> Vital Signs 09/02/24 19:18 Temperature 99.9 F H Pulse Rate 107 H Respiratory 18 Rate Blood Pressure 162/112 O2 Sat by Pulse 99 Oximetry - Reevaluation(s) Reevaluation #1: 09/02/24 21:37 Medical records reviewed (Edil Jarvis) Reevaluation #2: 09/02/24 21:37 Medically clear for psychiatric evaluation (Edil Jarvis) Reevaluation #3: Was pt. sent in by a medical professional or institution (, PA, FOOD STAND MANAGER, urgent care, hospital, or intermediate...) When possible be specific @ -no Did you speak to anyone other than the patient for history (EMS, parent, family, police, friend...)? What history was obtained from this source @ -no Did you review nursing and triage notes (agree or disagree)? Why? @ -agree Are old charts reviewed (outside hosp., previous admission, EMS record, old EKG, old radiological studies, urgent care reports/EKG's, intermediate records)? Report findings @ -yes Differential Diagnosis (chest pain, altered mental status, abdominal pain women, abdominal pain men, vaginal bleeding, weakness, fever, dyspnea, syncope, headache, dizziness, GI bleed, back pain, seizure, CVA, palpatations, mental health, musculoskeletal)? @ -prior EKG interpreted by me (3pts min.). @ -yes X-rays interpreted by me (1pt min.). @ -yes negative for acute disease CT interpreted by me (1pt min.). @ -no U/S interpreted by me (1pt. min.). @ -no What testing was considered but not performed or refused? (CT, X-rays, U/S, labs)? Why? @ -none What meds were considered but not given or refused? Why? @ -none Did you discuss the management of the patient with other professionals (professionals i.e. , PA, FOOD STAND MANAGER, lab, RT, psych nurse, social work case manager, clerk manager, teacher, morals squad police officer, social work case manager)? Give summary @ -no Was smoking cessation discussed for >3mins.? @ -no Was critical care preformed (if so, how long)? @ -no Were there social determinants of health that impacted care today? How? (Homelessness, low income, unemployed, alcoholism, drug addiction, leon sportation, low edu. Level, literacy, decrease access to med. care, skilled nursing, rehab)? @ -none Was there de-escalation of care discussed even if they declined (Discuss DNR or withdrawal of care, Hospice)? DNR status @ -no What co-morbidities impacted this encounter? (DM, HTN, Smoking, COPD, CAD, Cancer, CVA, ARF, Chemo, Hep., AIDS, mental health diagnosis, sleep apnea, morbid obesity)? @ -none Was patient admitted / discharged? Hospital course, mention meds given and route, prescriptions, significant lab abnormalities, going to OR and other pertinent info. @ - Undiagnosed new problem with uncertain prognosis? @ -no Drug Therapy requiring intensive monitoring for toxicity (Heparin, Nitro, Insulin, Cardizem)? @ -no Were any procedures done? @ -no Diagnosis/symptom? @ - Acute, or Chronic, or Acute on Chronic? @ -Acute Uncomplicated (without systemic symptoms) or Complicated (systemic symptoms)? @ -Complicated Side effects of treatment? @ -no Exacerbation, Progression, or Severe Exacerbation? @ -exacerbation Poses a threat to life or bodily function? How? (Chest pain, [place], [place], pneumonia, PE, COPD, DKA, ARF, appy, cholecystitis, CVA, Diverticulitis, Homicidal, Suicidal, threat to staff... and all critical care pts) @ -yes (Edil Jarvis) Reevaluation #4: Differential Mental Health Depression, anxiety, bipolar, psychosis, schizophrenia, borderline personality, situational depression, adjustment disorder, behavioral disorder, brain tumor, malingering, substance abuse, encephalopathy, medication reaction, dementia, hypothyroidism, degenerative neurologic disorder, lupus.... This is not meant to be all-inclusive list (Edil Jarvis) Disposition <Edil Jarvis - Last Filed: 09/02/24 21:36> Is patient prescribed a controlled substance at d/c from ED?: No <Brown Trevino - Last Filed: 09/03/24 01:00> Clinical Impression: Adjustment disorder, Anxiety Disposition: HOME SELF-CARE Condition: Good Instructions (If sedation given, give patient instructions): Mood Disorders (ED) Referrals: Jesse Haro MD [Primary Care Provider] - 1-2 days
== END 2024-09-03 01:08 | disposition home or self-care (01) ==
LOC: EC 19:09
DX: F43.23 Adjustment disorder with mixed anxiety and depressed mood (principal); F17.290 Nicotine dependence, other tobacco product, uncomplicated
CPT/HCPCS: 82075; 99284

== ENCOUNTER 2024-09-04 05:05 | Inpatient (IN) | payer MEDICAID, OTHER ==
--- NOTE | 2024-09-04 06:31 | XR ---
EXAM: XR Chest, 2 Views CLINICAL HISTORY: cough TECHNIQUE: Frontal and lateral views of the chest. COMPARISON: 12/31/2020 FINDINGS: Lungs: Unremarkable. No consolidation. Pleural space: Unremarkable. Mediastinum: Unremarkable. Normal mediastinal contour. Bones/joints: No acute findings. IMPRESSION: No acute findings.
--- NOTE | 2024-09-04 06:55 | ED ---
Chest Pain HPI - General Chief Complaint: Upper Respiratory Infection Stated Complaint: Chest Pain Time Seen by Provider: 09/04/24 06:43 Source: patient, RN notes reviewed Mode of arrival: ambulatory Limitations: no limitations - History of Present Illness Initial Comments: This is a 24-year-old female who presents to the emergency department for chest pain and anxiety. Family states that she just gave earlier this month and since then she has been struggling mentally. This was her first child. Over the last couple of days she had had chest pain with numbness radiating down the left arm. Family states that if she can have her heart evaluated to reassure her that it is okay, that will go a long way in helping her anxiety and having her feel better. Denies any suicidal or homicidal ideations. She was given a prescription for Zoloft by her GEOGRAPHIC AREA INTELLIGENCE OFFICER. However, she has been hesitant to take it. She did take a dose this morning. She has also been noncompliant with her blood pressure medication. MD Complaint: chest pain - Related Data Home Medications Medication Instructions Recorded Confirmed Labetalol [Trandate] 200 mg PO TID 09/04/24 09/04/24 Sertraline [Zoloft] 50 mg PO DAILY 09/04/24 09/04/24 Previous Rx's Medication Instructions Recorded hydrOXYzine pamoate [Vistaril] 50 mg PO Q6H PRN #30 capsule 09/04/24 traZODone HCL [Desyrel] 50 mg PO HS PRN #30 tab 09/04/24 Allergies Allergy/AdvReac Type Severity Reaction Status Date / Time No Known Allergies Allergy Verified 09/04/24 13:34 Review of Systems ROS Statement: Those systems with pertinent positive or pertinent negative responses have been documented in the HPI. ROS Other: All systems not noted in ROS Statement are negative. Past Medical History Past Medical History: No Reported History History of Any Multi-Drug Resistant Organisms: None Reported Past Surgical History: No Surgical Hx Reported Additional Past Surgical History / Comment(s): JAW SURGERY 2015 Past Anesthesia/Blood Transfusion Reactions: No Reported Reaction Past Psychological History: ADD/ADHD, Anxiety, Depression Smoking Status: Current every day smoker, Vaper Past Alcohol Use History: Occasional Past Drug Use History: None Reported - Past Family History Mother Family Medical History: No Reported History General Exam Limitations: no limitations General appearance: alert, anxious Head exam: Present: atraumatic, normocephalic, normal inspection Respiratory exam: Present: normal lung sounds bilaterally. Absent: respiratory distress, wheezes, rales, rhonchi, stridor Cardiovascular Exam: Present: regular rate, normal rhythm, normal heart sounds. Absent: systolic murmur, diastolic murmur, rubs, gallop, clicks Neurological exam: Present: alert, oriented X3, CN II-XII intact Psychiatric exam: Present: normal affect, normal mood Skin exam: Present: warm, dry, intact, normal color. Absent: rash Course Vital Signs 09/04/24 09/04/24 09/04/24 05:09 07:45 09:40 Temperature 98.4 F 98.6 F Pulse Rate 98 101 H 104 H Respiratory 18 22 16 Rate Blood Pressure 176/106 163/118 160/109 O2 Sat by Pulse 99 98 Oximetry Chest Pain MDM - MDM This is a 24 year old female who presents to the emergency department for chest pain. Was pt. sent in by a medical professional or institution? @ -No Did you speak to anyone other than the patient for history? @ -No Did you review nursing and triage notes? @ -Yes, and I agree, it is accurate with regards to the patient's symptoms. Were old charts reviewed? @ -No Differential Diagnosis? @ -Differential Chest Pain: Stable Angina, Unstable Angina, STEMI, NSTEMI Aortic Dissection, Pneumothorax, Musculoskeletal, Esophageal Spasm GERD, Cholecystitis, Pancreatitis, Zoster, this is not meant to be an all-inclusive list. EKG interpreted by me (3pts min.)? @ -EKG interpreted by me demonstrating the following: Sinus tachycardia. Ventricular rate 105 bpm, ID interval 140 ms, QRS duration 93 ms, QTc 400 ms. X-rays interpreted by me (1pt min.)? @ -Chest x-ray obtained, my interpretation identifies no localized consolidations or infiltrates. CT interpreted by me (1pt min.)? @ -Not obtained U/S interpreted by me (1pt. min.)? @ -Not obtained What testing was considered but not performed? (CT, X-rays, U/S, labs)? Why? @ -None What meds were considered but not given? Why? @ -None Did you discuss the management of the patient with other professionals? @ -Yes, EPS, who initially advised that she be discharged home with safety plan and mobile crisis would follow-up with her. However, patient then began to make suicidal statements and requested to sign herself in. Did you reconcile home meds? @ -No Was smoking cessation discussed for >3mins.? @ -No Was critical care preformed (if so, how long)? @ -No Were there social determinants of health that impacted care today? How? (Homelessness, low income, unemployed, alcoholism, drug addiction, transportation, low edu. Level, literacy, decrease access to med. care, prison, rehab)? @ -No Was there de-escalation of care discussed even if they declined? (Discuss DNR or withdrawal of care, Hospice)? @ -No What co-morbidities impacted this encounter? (DM, HTN, Smoking, COPD, CAD, Cancer, CVA, Hep., AIDS, mental health diagnosis, sleep apnea, morbid obesity)? @ -None Was patient admitted / discharged? @ -Admitted. Lab work unremarkable. Troponin negative. Chest x-ray reveals no acute process. Patient was given Ativan and Toradol for the pain and anxiety. Alcohol level was negative and she had been medically cleared at this point, so we had EPS come and evaluate the patient. Patient was initially going to be discharged home following a safety plan and have close follow-up with mobile crisis. However, she started to make suicidal statements to her father and felt that she needed to be admitted. EPS came to reevaluate the patient and advised that she would be admitted on a voluntary basis. Patient subsequently admitted to [facility] for inpatient psychiatric care. Case discussed with ED attending, Dr. Kraus. Undiagnosed new problem with uncertain prognosis? @ -None Drug Therapy requiring intensive monitoring for toxicity (Heparin, Nitro, Insulin, Cardizem)? @ -None Were any procedures done? @ -None Diagnosis/symptom? @ -Suicidal ideations, mood disturbance Acute, or Chronic, or Acute on Chronic? @ -Acute Uncomplicated (without systemic symptoms) or Complicated (systemic symptoms)? @ -Complicated Side effects of treatment? @ -None Exacerbation, Progression, or Severe Exacerbation] @ -Not applicable Poses a threat to life or bodily function? @ -Yes, suicidal ideations are life-threatening Disposition Clinical Impression: mood disturbance, Suicidal ideations Disposition: TRANSFER TO PSYCH HOSP/UNIT Is patient prescribed a controlled substance at d/c from ED?: No
[2024-09-04] MEDS: LORazepam 1 MG TAB PO STA (07:44)
[2024-09-04 07:58] LABS: Basophils % (A) 0 %; Eosinophils # (A) 0.1 k/uL (0-0.7); Eosinophils % (A) 1 %; HCT 39.3 % (34.0-46.0); Lymphocytes # (A) 1.1 k/uL (1.0-4.8); Lymphocytes % (A) 11 %; MCH 28.6 pg (25.0-35.0); MCHC 33.2 g/dL (31.0-37.0); MCV 86.2 fL (80.0-100.0); Mean Platelet Volume 7.2; Monocytes # (A) 0.4 k/uL (0-1.0); Monocytes % (A) 4 %; Neutrophils # (A) 8.5 k/uL (1.3-7.7); Neutrophils % (A) 83 %; Platelet Count 340 k/uL (150-450); RBC 4.56 m/uL (3.80-5.40); RDW 13.2 % (11.5-15.5); WBC 10.2 k/uL (3.8-10.6)
[2024-09-04 08:12] LABS: ALT 31 U/L (4-34); AST 28 U/L (14-36); African American GFR (CKD) >90 (>60 ml/min/1.73 sqM); Alkaline Phosphatase 91 U/L (38-126); Anion Gap 13 mmol/L; Blood Urea Nitrogen 8 mg/dL (7-17); Calcium 10.3 mg/dL (8.4-10.2); Carbon Dioxide 21 mmol/L (22-30); Chloride 107 mmol/L (98-107); Glucose 98 mg/dL (74-99); Magnesium 1.9 mg/dL (1.6-2.3); Non-African American GFR(CKD) >90 (>60 ml/min/1.73 sqM); Potassium 4.1 mmol/L (3.5-5.1); Sodium 141 mmol/L (137-145); Total Bilirubin 0.5 mg/dL (0.2-1.3); Total Protein 8.5 g/dL (6.3-8.2)
[2024-09-04 08:36] LABS: Uric Acid 4.4 mg/dL (3.7-7.4)
[2024-09-04] MEDS: KETOROLAC 15 MG/ML 1 ML VIAL IVP STA (08:42)
[2024-09-04 08:46] LABS: Appearance,Urine Clear (Clear); Bilirubin,Urine Negative (Negative); Blood,Urine Large (Negative); Color,Urine Colorless; Glucose,Urine (UA) Negative (Negative); Ketones,Urine 1+ (Negative); Leukocyte Esterase,Urine Negative (Negative); Mucus,Urine Rare /hpf; Nitrite,Urine Negative (Negative); PH, Urine 5.5 (5.0-8.0); Protein,Urine Negative (Negative); RBC,Urine 19 /hpf (0-5); Specific Gravity,Urine 1.007 (1.001-1.035); Squamous Epithelial Cell,Urine 1 /hpf (0-4); Urobilinogen,Urine <2.0 mg/dL (<2.0); WBC,Urine 4 /hpf (0-5)
[2024-09-04] MEDS: LORazepam 2 MG/ML INJ IV STA (08:46)
[2024-09-04 08:50] LABS: Protein/Creatinine Ratio,Urine 0.254
[2024-09-04 08:54] LABS: Partial Thromboplastin Time 23.7 sec (22.0-30.0); Prothrombin Time 11.1 sec (10.0-12.5)
[2024-09-04] MEDS ORDERED: traZODone HCL 50 MG TAB PO PRN (15:36)
[2024-09-04] MEDS ORDERED: MAG HYDROX/AL HYDROX/SIMETH 355 ML BOTTLE PO PRN (15:36)
[2024-09-04] MEDS ORDERED: HALOPERIDOL LACTATE 5 MG/ML 1 ML VIAL IM PRN (15:36)
[2024-09-04] MEDS ORDERED: ACETAMINOPHEN TAB 325 MG TAB PO PRN (15:36)
[2024-09-04] MEDS ORDERED: haloperidoL 5 MG TAB PO PRN (15:36)
[2024-09-04] MEDS ORDERED: MAGNESIUM HYDROXIDE 2,400 MG/30 ML CUP PO PRN (15:36)
[2024-09-04] MEDS: LABETALOL 200 MG TAB PO SCH (18:45)
[2024-09-04] MEDS: NICOTINE 14MG/24HR PATCH TRANSDERM SCH (18:45)
[2024-09-04] MEDS: hydrOXYzine HCL 25 MG TAB PO PRN (19:27)
[2024-09-04] MEDS: hydrALAZINE HCL 25 MG TAB PO SCH (22:08)
[2024-09-04 23:13] LABS: Urine Alcohol Negative (Negative)
[2024-09-04 23:14] LABS: Urine Barbiturate Negative (Negative); Urine Cocaine Negative (Negative); Urine Methadone Negative (Negative); Urine Opiates Negative (Negative); Urine Phencyclidine Negative (Negative)
[2024-09-05] MEDS: SERTRALINE 50 MG TAB PO SCH ×2 (08:25→21:59)
--- NOTE | 2024-09-05 11:35 | P.HP ---
Psychiatric H&P - . H&P Date: 09/05/24 History & Physical: Allergies Allergy/AdvReac Type Severity Reaction Status Date / Time No Known Allergies Allergy Verified 09/04/24 13:34 Vital Signs Temp 99.2 F 09/05/24 06:06 Pulse 92 09/05/24 06:06 Resp 16 09/05/24 06:06 BP 141/93 09/05/24 06:06 Pulse Ox 98 09/05/24 06:06 FiO2 Intake & Output 09/04/24 09/05/24 09/05/24 18:59 06:59 18:59 Weight 78.925 kg Laboratory Last Values WBC 10.2 k/uL (3.8-10.6) 09/04/24 07:53 RBC 4.56 m/uL (3.80-5.40) 09/04/24 07:53 Hgb 13.0 gm/dL (11.4-16.0) 09/04/24 07:53 Hct 39.3 % (34.0-46.0) 09/04/24 07:53 MCV 86.2 fL (80.0-100.0) 09/04/24 07:53 MCH 28.6 pg (25.0-35.0) 09/04/24 07:53 MCHC 33.2 g/dL (31.0-37.0) 09/04/24 07:53 RDW 13.2 % (11.5-15.5) 09/04/24 07:53 Plt Count 340 k/uL (150-450) 09/04/24 07:53 MPV 7.2 09/04/24 07:53 Neutrophils % 83 % 09/04/24 07:53 Lymphocytes % 11 % 09/04/24 07:53 Monocytes % 4 % 09/04/24 07:53 Eosinophils % 1 % 09/04/24 07:53 Basophils % 0 % 09/04/24 07:53 Neutrophils # 8.5 k/uL (1.3-7.7) H 09/04/24 07:53 Lymphocytes # 1.1 k/uL (1.0-4.8) 09/04/24 07:53 Monocytes # 0.4 k/uL (0-1.0) 09/04/24 07:53 Eosinophils # 0.1 k/uL (0-0.7) 09/04/24 07:53 Basophils # 0.0 k/uL (0-0.2) 09/04/24 07:53 PT 11.1 sec (10.0-12.5) 09/04/24 08:37 INR 1.0 (<1.2) 09/04/24 08:37 APTT 23.7 sec (22.0-30.0) 09/04/24 08:37 Fibrinogen 342 mg/dL (200-500) 09/04/24 08:37 Sodium 141 mmol/L (137-145) 09/04/24 07:53 Potassium 4.1 mmol/L (3.5-5.1) 09/04/24 07:53 Chloride 107 mmol/L (98-107) 09/04/24 07:53 Carbon Dioxide 21 mmol/L (22-30) L 09/04/24 07:53 Anion Gap 13 mmol/L 09/04/24 07:53 BUN 8 mg/dL (7-17) 09/04/24 07:53 Creatinine 0.72 mg/dL (0.52-1.04) 09/04/24 07:53 Est GFR (CKD-EPI)AfAm >90 (>60 ml/min/1.73 sqM) 09/04/24 07:53 Est GFR (CKD-EPI)NonAf >90 (>60 ml/min/1.73 sqM) 09/04/24 07:53 Glucose 98 mg/dL (74-99) 09/04/24 07:53 Uric Acid 4.4 mg/dL (3.7-7.4) 09/04/24 07:53 Calcium 10.3 mg/dL (8.4-10.2) H 09/04/24 07:53 Magnesium 1.9 mg/dL (1.6-2.3) 09/04/24 07:53 Total Bilirubin 0.5 mg/dL (0.2-1.3) 09/04/24 07:53 AST 28 U/L (14-36) 09/04/24 07:53 ALT 31 U/L (4-34) 09/04/24 07:53 Alkaline Phosphatase 91 U/L (38-126) 09/04/24 07:53 Lactate Dehydrogenase 197 U/L (120-246) 09/04/24 07:53 Troponin I <0.012 ng/mL (0.000-0.034) 09/04/24 07:53 Total Protein 8.5 g/dL (6.3-8.2) H 09/04/24 07:53 Albumin 5.0 g/dL (3.5-5.0) 09/04/24 07:53 Urine Color Colorless 09/04/24 08:20 Urine Appearance Clear (Clear) 09/04/24 08:20 Urine pH 5.5 (5.0-8.0) 09/04/24 08:20 Ur Specific [place] 1.007 (1.001-1.035) 09/04/24 08:20 Urine Protein Negative (Negative) 09/04/24 08:20 Urine Glucose (UA) Negative (Negative) 09/04/24 08:20 Urine Ketones 1+ (Negative) H 09/04/24 08:20 Urine Blood Large (Negative) H 09/04/24 08:20 Urine Nitrite Negative (Negative) 09/04/24 08:20 Urine Bilirubin Negative (Negative) 09/04/24 08:20 Urine Urobilinogen <2.0 mg/dL (<2.0) 09/04/24 08:20 Ur Leukocyte Esterase Negative (Negative) 09/04/24 08:20 Urine RBC 19 /hpf (0-5) H 09/04/24 08:20 Urine WBC 4 /hpf (0-5) 09/04/24 08:20 Ur Squamous Epith Cells 1 /hpf (0-4) 09/04/24 08:20 Urine Mucus Rare /hpf (None) H 09/04/24 08:20 Urine Creatinine 67.0 mg/dL 09/04/24 08:20 Protein/Creatinin Ratio 0.254 09/04/24 08:20 Urine Total Protein 17.0 mg/dL 09/04/24 08:20 Urine HCG, Qual Not Detected (Not Detectd) 09/04/24 08:20 Urine Opiates Screen Negative (Negative) 09/04/24 08:20 Urine Methadone Screen Negative (Negative) 09/04/24 08:20 Ur Propoxyphene Screen Negative (Negative) 09/04/24 08:20 Urine Barbiturates Negative (Negative) 09/04/24 08:20 Ur Phencyclidine Scrn Negative (Negative) 09/04/24 08:20 Ur Amphetamine Screen Negative (Negative) 09/04/24 08:20 U Benzodiazepines Scrn Negative (Negative) 09/04/24 08:20 Urine Cocaine Screen Negative (Negative) 09/04/24 08:20 U Cannabinoids Screen Positive (Negative) A 09/04/24 08:20 Urine Alcohol Negative (Negative) 09/04/24 08:20 Serum Alcohol <10 mg/dL 09/04/24 08:37 U Creatinine Drug Scrn 67.7 mg/dL (>=20.0) 09/04/24 08:20 Influenza Type A (PCR) Not Detected (Not Detectd) 09/04/24 05:13 Influenza Type B (PCR) Not Detected (Not Detectd) 09/04/24 05:13 RSV (PCR) Not Detected (Not Detectd) 09/04/24 05:13 SARS-CoV-2 (PCR) Not Detected (Not Detectd) 09/04/24 05:13 09/05/24 11:19 IDENTIFYING DATA: Patient is a 24 yo female, is single, lives with boyfriend in a house, has a baby, unemployed. HPI: Patient presented to the hospital yesterday and was evaluated by EPS nurse and as her note "Film Cutter went in to assess pt. at 1040. Father was at bedside and pt. agreed to have him stay in room for assessment. Pt. is vague and father keeps answering questions. Film Cutter advised him that we like the pt. to answer the questions and he will have an opportunity to add his thoughts at the end of the interview. Pt. states she had been to [facility] but doesn't remember how long ago. She does states it was before her grandmother in May. Pt. had come to the ER yesterday and was advised to follow up with [facility] and [facility] on Friday. Pt. did call [facility] last night and she states they told her about a place in [place] but she doesn't know why. Pt. came to the ER today with complaints of chest pain and numbness radiating down her L arm. Pt. father said that if she could have be medically cleared for her heart she might feel better. Pt. co anxiety and was given Ativan in the ER. Pt. had given earlier this month and leader writer discussed post depression with pt. Pt. had been prescribed Zolort by Dr. Humphries but she didn't want to take it but admits took once this am. Talked with pt. about antidepressants and the importance of taking them daily and that some times it takes a while for them to be fully effective. Pt. states "I want willies" Per pt. she had taken Wellbutrin years ago but was not perscribed for her. Pt. denies any SOY but states she isn't sleeping well. Pt. states the family helps with the baby so the lack of sleep is from restlessness. " Patient was agreeable to be seen today by leader writer for psychiatric H and P. she claims that she felt like she was having a "heart attack" yesterday and states that she told her dad who brought her into the hospital. She was positive for THC in her urine. Claims that she was also having chest pain when she came into the hospital that resolved. States that she gave on August 13 has been dealing with "" issues claims that her mood has been unstable and also having anxiety. States that she has been struggling mentally. Claims that she was prescribed Zoloft by her CHILDR[employer]CH[employer] SUPERVISOR however has not been taking it. She is minimizing her depression. She was somewhat bizarre during conversations, had poor eye contact, hesitant and some illogical thoughts. She was not endorsing any paranoia did not endorse delusions. States that she was feeling suicidal when she came in and claims that she had a plan to cut herself if she was discharged.. Patient denies any current suicidal or homicidal ideations intent or plan. At this time patient denies any auditory or visual hallucinations. Patient denies any flight of ideas racing thoughts and increased in goal directed behavior. Patient admits to using vape nicotine products. She states that she does not use any other recreational drug use PAST PSYCHIATRIC HISTORY: Patient has a history of depression and anxiety. Patient is currently on Zoloft however has not been taking it. Patient denies any previous psychiatric hospitalizations. Patient denies any psychiatric outpatient follow-up. Patient denies any history of suicide attempts in the past. PMH: as per ER note ALLERGIES: as per EMR CHEMICAL DEPENDENCY HISTORY: as per HPI FAMILY PSYCHIATRIC/SUBSTANCE USE HISTORY: Denies SOCIAL HISTORY: Patient was born and raised in [facility]. Claims that she completed high school. 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 Currently unemployed. States that she has no legal history. He she has 1 baby, this is her boyfriend in a house.. MENTAL STATUS EXAM: General Appearance: Patient appears to be have several tattoos, stated age is alert, attempts to cooperate, bizarre at times, poor eye contact. Patient appears to have fair hygiene and grooming. Behavior: Patient is seated without any agitated behavior. Poor eye contact, bizarre at times Speech: Patient's speech is fluent and nonpressured. Hesitant Mood/Affect: Patient reports their mood is "mainly anxious now", affect is incongruent and constricted. Suicidality/Homicidality: Patient denies having any homicidal ideation intent or plan. Denies any suicidal ideations intent or plan Perceptions: Patient denies any visual hallucinations and denies any auditory hallucinations Though content/process: There is no evidence of any delusional thought content and thought process is linear and goal-directed. Rambles at times, illogical at times. Memory and concentration: AOX3, grossly intact for the purposes of this session. Can spell "WORLD" backwards Judgment and insight: Poor STRENGTHS/WEAKNESSES: strength is that patient is resilient. Weakness is that patient has poor judgment and is impulsive INTELLECT: Average IMPRESSIONS: Major depressive disorder, with psychotic features Anxiety disorder unspecified Cannabis use disorder mild Nicotine dependence PLAN: -Patient is admitted under voluntary status to [facility] for stabilization of psychiatric symptoms and safety. Patient has signed adult voluntary form and medication consent and is placed in patient's chart. -Medications : Zoloft 50 mg nightly for mood/anxiety, Seroquel 25 mg nightly for mood stabilization/insomnia/psychosis, Vistaril as needed for anxiety. Trazodone 50 mg nightly as needed for insomnia -Ativan and Haldol PRN for agitation/aggression -Patient was informed of the risks, benefits and side effects of the medication and patient verbally consented to taking the medications. Patient signed med consent form and was placed in chart. -Internal Medicine consult to perform medical evaluation and physical. -NRT -nicotine patch -SW on board for discharge planning. Encourage patient to participate in groups to work on coping skills. 09/05/24 11:29
--- NOTE | 2024-09-05 20:58 | P.CONS ---
History of Present Illness - Reason for Consult Consult date: 09/05/24 - History of Present Illness This is a pleasant 24-year-old female medical history for hypertension and marijuana use. Patient is 22 days was having worsening depression and anxiety. She was also complaining of and numbness rating down her left arm. Has been having some back pain but none currently. Patient is feeling anxious about her heart. She is preoccupied that something cardiac is wrong. Patient states she has been having feelings of anxiety and depression since having her daughter. She was born at 35 weeks and was in the special care nursery, patient and her boyfriend were staying [facility] to be near and when baby was discharged they returned home. Patient lives with her boyfriend and her father. She was started on zoloft and labetolol in the hospital by Dr Humphries before discharge. She has been inconsistent with taking this medication. It is difficult to gather a history of this patient, she seems confused and having moments of staring off before answer questions. She does not given an accurate timeline. Patient is still lactating although baby has been bottle fed. Currentl y her sister is watching the baby. Patient is unemployed and her boyfriend is a "cluster bore operator" she states she has good family support. She states she was feeling suicidal ideations had a plan to cut herself if discharged from the hospital. Patient in addition to marijuana use is vaping nicotine products. She denies any other recreational drug use however her drug toxicology was positive for marijuana. Patient has been tachycardic and hypertensive since admission this could be exacerbated by anxiety. She is continued on labetalol 3 times a day we did start this patient on oral hydralazine twice a day. Her TSH was checked and normal 1.550. Her troponin level is negative. Her proBNP is not elevated. A D dimer is normal. She is not having any shortness of breath or chest pain. REVIEW OF SYSTEMS: CONSTITUTIONAL: No fever, no malaise, no fatigue. HEENT: No recent visual problems or hearing problems. Denied any sore throat. CARDIOVASCULAR: No chest pain, orthopnea, PND, no palpitations, no syncope. PULMONARY: No shortness of breath, no cough, no hemoptysis. GASTROINTESTINAL: No diarrhea, no nausea, no vomiting, no abdominal pain. NEUROLOGICAL: No headaches, no weakness, no numbness. HEMATOLOGICAL: Denies any bleeding or petechiae. GENITOURINARY: Denies any burning micturition, frequency, or urgency. MUSCULOSKELETAL/RHEUMATOLOGICAL: Denies any joint pain, swelling, or any muscle pain. ENDOCRINE: Denies any polyuria or polydipsia. The rest of the 14-point review of systems is negative. PHYSICAL EXAMINATION: GENERAL: The patient is alert and oriented x3, not in any acute distress. Well developed, well nourished. HEENT: Pupils are round and equally reacting to light. EOMI. No scleral icterus. No conjunctival pallor. Normocephalic, atraumatic. No pharyngeal erythema. No thyromegaly. CARDIOVASCULAR: S1 and S2 present. No murmurs, rubs, or gallops. PULMONARY: Chest is clear to auscultation, no wheezing or crackles. ABDOMEN: Soft, nontender, nondistended, normoactive bowel sounds. No palpable organomegaly. MUSCULOSKELETAL: No joint swelling or deformity. EXTREMITIES: No cyanosis, clubbing, or pedal edema. NEUROLOGICAL: Gross neurological examination did not reveal any focal deficits. SKIN: No rashes. Assessment and plan Depression anxiety and suicidal ideations depression Marijuana and nicotine vape use Hypertension was noncompliant with her labetalol. She has been hypertensive since delivering back on Aug 13. Sinus tachycardia continues on labetalol Likely cervical radiculopathy with left arm parasthesias and neck pain. Nigel flynny not reporting any pain GI prophylaxis Full Code Plan Continue medications per psychiatry BNP, D-Dimer, troponin are unremarkable EKG sinus tachycardia no specific ST or T wave changes Continue hydralazine and change labetelol to metoprolol for improved blood pressure control Patient would benefit from an event monitor on discharge to monitor the tachycardia this can be arranged by her PCP Dr. Jesse Haro on follow Thank you for this consultation The impression and plan of care has been dictated by Sherlyn Pedersen, Nurse Practitioner as directed. Dr. Riya MD I have performed a history and physical examination and medical decision making of this patient, discussed the same with the dictator, and agree with the dictators assessment and plan as written, documented as a scribe. Based on total visit time, I have performed more than 50% of this visit. Past Medical History Past Medical History: No Reported History History of Any Multi-Drug Resistant Organisms: None Reported Past Surgical History: No Surgical Hx Reported Additional Past Surgical History / Comment(s): JAW SURGERY 2015 Past Anesthesia/Blood Transfusion Reactions: No Reported Reaction Past Psychological History: ADD/ADHD, Anxiety, Depression Smoking Status: Current every day smoker, Vaper Past Alcohol Use History: Occasional Past Drug Use History: None Reported - Past Family History Mother Family Medical History: No Reported History Medications and Allergies Home Medications Medication Instructions Recorded Confirmed Type Labetalol [Trandate] 200 mg PO TID 09/04/24 09/04/24 History Sertraline [Zoloft] 50 mg PO DAILY 09/04/24 09/04/24 History hydrOXYzine pamoate [Vistaril] 50 mg PO Q6H PRN #30 capsule 09/04/24 Rx traZODone HCL [Desyrel] 50 mg PO HS PRN #30 tab 09/04/24 Rx Allergies Allergy/AdvReac Type Severity Reaction Status Date / Time No Known Allergies Allergy Verified 09/04/24 13:34 Physical Exam Vitals: Vital Signs Temp Pulse Resp BP Pulse Ox 09/05/24 06:06 99.2 F 92 16 141/93 98 09/04/24 22:05 101 H 123/84 96 09/04/24 19:29 108 H 16 160/96 97 Intake and Output 09/05/24 09/05/24 09/05/24 06:59 14:59 22:59 Other: Weight 79.8 kg Results CBC & Chem 7: 09/04/24 07:53 09/04/24 07:53 Labs: Abnormal Lab Results - Last 24 Hours (Table) 09/04/24 Range/Units 08:20 U Cannabinoids Screen Positive A (Negative) Assessment and Plan Time with Patient: Greater than 30
[2024-09-05] MEDS: QUEtiapine 25 MG TAB PO SCH (21:59)
[2024-09-05] MEDS: METOPROLOL TARTRATE 50 MG TAB PO SCH (21:59)
[2024-09-05 22:51] LABS: Chol/HDL Ratio 2.57 Ratio; LDL Cholesterol,Calculated 66.3 mg/dL (0.0-131.0); VLDL Calculation 14.38 mg/dL (5.00-40.00)
[2024-09-06 07:05] VITALS: RESP 16
--- NOTE | 2024-09-06 11:25 | P.PN ---
Progress Note - Text Progress Note Date: 09/06/24 Interval history: Patient was seen today for psychiatric follow-up. Patient was carrying around with her several papers and talking abouit what she is learning iin groups. States that she feels a bit better today with the medications. Claims that she had a difficult time sleeping last night about 3 to 4 hours. He spoke about increasing the Seroquel which she is okay with. Her eye contact is improving, her thoughts are more organized today and more logical. She was not endorsing any paranoia or delusions today. States that her mood is better however still having some anxiety during the day. We spoke about using Atarax as needed which she is okay with. She claims that her appetite is fair, has been going to some groups. Denies any auditory or visual hallucinations, denies any suicidal homicidal ideations intent or plan. MENTAL STATUS EXAM: General Appearance: Patient appears to be have several tattoos, stated age is alert, attempts to cooperate, improving eye contact. Patient appears to have fair hygiene and grooming. Behavior: Patient is seated without any agitated behavior. Improving eye contact today. Speech: Patient's speech is fluent and nonpressured. Hesitant Mood/Affect: Patient reports their mood is "less depressed but still anxious", affect is congruent and constricted. Improving mildly Suicidality/Homicidality: Patient denies having any homicidal ideation intent or plan. Denies any suicidal ideations intent or plan Perceptions: Patient denies any visual hallucinations and denies any auditory hallucinations Though content/process: There is no evidence of any delusional thought content and thought process is linear and goal-directed. Rambles at times, more logical and goal oriented Memory and concentration: AOX3, grossly intact for the purposes of this session Judgment and insight: Poor, improving mildly IMPRESSIONS: Major depressive disorder, with psychotic features Anxiety disorder unspecified Cannabis use disorder mild Nicotine dependence PLAN: -Patient is admitted under voluntary status to [facility] for stabilization of psychiatric symptoms and safety. Patient has signed adult voluntary form and medication consent and is placed in patient's chart. -Medications : Zoloft 50 mg nightly for mood/anxiety, increase Seroquel 50 mg nightly for mood stabilization/insomnia/psychosis, Atarax as needed for anxiety. Trazodone 50 mg nightly as needed for insomnia -Ativan and Haldol PRN for agitation/aggression -NRT -nicotine patch -SW on board for discharge planning. Encourage patient to participate in groups to work on coping skills.hopeful for discharge in 2-3 days if patient is improving.
[2024-09-06] MEDS: QUEtiapine 50 MG TAB PO SCH (21:25)
--- NOTE | 2024-09-07 10:19 | P.PN ---
Progress Note - Text Progress Note Date: 09/07/24 Interval history: Patient was seen today for psychiatric follow-up. Patient appears to have a b righter affect today. States that she has been talking to her dad and also her boyfriend over the phone which has been going well. She appears to be more future oriented today. Claims that the medications have been helping her with her mood and anxiety. States that she was able to sleep better last night about 7 hours. States that she has a fair appetite has been going to groups. Denies any auditory or visual hallucinations, denies any suicidal or homicidal ideations intent or plan. MENTAL STATUS EXAM: General Appearance: Patient appears to be have several tattoos, stated age is alert, attempts to cooperate, improving eye contact. Patient appears to have fair hygiene and grooming. Behavior: Patient is seated without any agitated behavior. Improving eye contact today. More pleasant today Speech: Patient's speech is fluent and nonpressured. Mood/Affect: Patient reports their mood is "better", affect is congruent and constricted. Improving mildly Suicidality/Homicidality: Patient denies having any homicidal ideation intent or plan. Denies any suicidal ideations intent or plan Perceptions: Patient denies any visual hallucinations and denies any auditory hallucinations Though content/process: There is no evidence of any delusional thought content and thought process is linear and goal-directed. more logical and goal oriented Memory and concentration: AOX3, grossly intact for the purposes of this session Judgment and insight: improving mildly IMPRESSIONS: Major depressive disorder, with psychotic features Anxiety disorder unspecified Cannabis use disorder mild Nicotine dependence PLAN: -Patient is admitted under voluntary status to [facility] for stabilization of psychiatric symptoms and safety. Patient has signed adult voluntary form and medication consent and is placed in patient's chart. -Medications : Zoloft 50 mg nightly for mood/anxiety, Seroquel 50 mg nightly for mood stabilization/insomnia/psychosis, Atarax as needed for anxiety. Trazodone 50 mg nightly as needed for insomnia -Ativan and Haldol PRN for agitation/aggression -NRT -nicotine patch -SW on board for discharge planning. Encourage patient to participate in groups to work on coping skills.hopeful for discharge tomorrow if patient is improving.
--- NOTE | 2024-09-07 16:55 | P.PN ---
Progress Note - Text Progress Note Date: 09/07/24 - History of Present Illness This is a pleasant 24-year-old female medical history for hypertension and marijuana use. Patient is 22 days was having worsening depression and anxiety. She was also complaining of and numbness rating down her left arm. Has been having some back pain but none currently. Patient is feeling anxious about her heart. She is preoccupied that something cardiac is wrong. Patient states she has been having feelings of anxiety and depression since having her daughter. She was born at 35 weeks and was in the special care nursery, patient and her boyfriend were staying at the [facility] to be near and when baby was discharged they returned home. Patient lives with her boyfriend and her father. She was started on zoloft and labetolol in the hospital by Dr Humphries before discharge. She has been inconsistent with taking this medication. It is difficult to gather a history of this patient, she seems confused and having moments of staring off before answer questions. She does not given an accurate timeline. Patient is still lactating although baby has been bottle fed. Currently her sister is watching the baby. Patient is unemployed and her boyfriend is a "burn out scarfing operator" she states she has good family support. She states she was feeling suicidal ideations had a plan to cut herself if discharged from the hospital. Patient in addition to marijuana use is vaping nicotine products. She denies any other recreational drug use however her drug toxicology was positive for marijuana. Patient has been tachycardic and hypertensive since admission this could be exacerbated by anxiety. She is continued on labetalol 3 times a day we did start this patient on oral hydralazine twice a day. Her TSH was checked and normal 1.550. Her troponin level is negative. Her proBNP is not elevated. A D dimer is normal. She is not having any shortness of breath or chest pain. September 07: Patient up and about. Tolerating a diet. Patient is a bit suspicious about how the psychiatrist was addressing her. Patient was reassured. That psychiatrist has her best interest. Patient is keen to go back to her baby. She had a vaginal delivery on August 13. Was prescribed labetalol. But when got discharge felt a bit overwhelmed did not take her blood pressure. Now she is on Lopressor and hydralazine. Borders of taking her medications. Denies any significant vaginal discharge. Active Medications Acetaminophen (Acetaminophen Tab 325 Mg Tab) 650 mg PO Q4HR PRN PRN Reason: Mild Pain (Scale 1 to 3) Al Hydroxide/Mg Hydroxide (Mag Hydrox/Al Hydrox/Simeth 355 Ml Bottle) 30 ml PO Q4HR PRN PRN Reason: GI Upset Haloperidol (Haloperidol 5 Mg Tab) 5 mg PO Q6HR PRN PRN Reason: Agitation Haloperidol Lactate (Haloperidol Lactate 5 Mg/Ml 1 Ml Vial) 5 mg IM Q6HR PRN PRN Reason: Severe Agitation Hydralazine HCl (Hydralazine Hcl 25 Mg Tab) 25 mg PO BID [facility] Last Admin: 09/07/24 09:23 Dose: 25 mg Hydroxyzine HCl (Hydroxyzine Hcl 25 Mg Tab) 25 mg PO Q6HR PRN PRN Reason: Anxiety Last Admin: 09/06/24 09:05 Dose: 25 mg Magnesium Hydroxide (Magnesium Hydroxide 2,400 Mg/30 Ml Cup) 2,400 mg PO DAILY PRN PRN Reason: Constipation Metoprolol Tartrate (Metoprolol Tartrate 50 Mg Tab) 50 mg PO BID [facility] Last Admin: 09/07/24 09:23 Dose: 50 mg Nicotine (Nicotine 14mg/24hr Patch) 1 patch TRANSDERM DAILY [facility] Last Admin: 09/07/24 09:23 Dose: Not Given Quetiapine Fumarate (Quetiapine 50 Mg Tab) 50 mg PO HS [facility] Last Admin: 09/06/24 21:25 Dose: 50 mg Sertraline HCl (Sertraline 50 Mg Tab) 50 mg PO HS [facility] Last Admin: 09/06/24 21:25 Dose: 50 mg Trazodone HCl (Trazodone Hcl 50 Mg Tab) 50 mg PO HS PRN PRN Reason: Insomnia On examination: VITAL SIGNS: [1.5, 86, 16, 133/92, 98% room air] GENERAL APPEARANCE: Chair awake cheerful HEENT: Normal external appearance of nose and ear. Oral cavity normal EYES: Pupils equal. Conjunctiva normal. NECK: JVD not raised. Mass not palpable. RESPIRATORY: Respiratory effort normal. Lungs clear to auscultation. CARDIOVASCULAR: First and second sounds normal. No edema. ABDOMEN: Soft. Liver and spleen not palpable. No tenderness. No mass palpable. PSYCHIATRY: Alert and oriented x3. Mood and affect normal. INVESTIGATIONS, reviewed in the clinical context: LDL 66.3 proBNP less than 20 HbA1c 5.4 D-dimer 0.3 Assessment and plan Depression anxiety and suicidal ideations: Better depression Marijuana and nicotine vape use Hypertension was noncompliant with her labetalol. She has been hypertensive since vaginal delivery August 13 Sinus tachycardia Likely cervical radiculopathy with left arm parasthesias and neck pain. Cu rrently not reporting any pain Continue with current blood pressure medications. Discussed with the patient. Importance of compliance. Patient to follow-up with PCP upon discharge. Past Medical History Past Medical History: No Reported History History of Any Multi-Drug Resistant Organisms: None Reported Past Surgical History: No Surgical Hx Reported Additional Past Surgical History / Comment(s): JAW SURGERY 2014 Past Anesthesia/Blood Transfusion Reactions: No Reported Reaction Past Psychological History: ADD/ADHD, Anxiety, Depression Smoking Status: Current every day smoker, Vaper Past Alcohol Use History: Occasional Past Drug Use History: None Reported - Past Family History Mother Family Medical History: No Reported History Medications and Allergies Home Medications Medication Instructions Recorded Confirmed Type Labetalol [Trandate] 200 mg PO TID 09/04/24 09/04/24 History Sertraline [Zoloft] 50 mg PO DAILY 09/04/24 09/04/24 History hydrOXYzine pamoate [Vistaril] 50 mg PO Q6H PRN #30 capsule 09/04/24 Rx traZODone HCL [Desyrel] 50 mg PO HS PRN #30 tab 09/04/24 Rx Allergies Allergy/AdvReac Type Severity Reaction Status Date / Time No Known Allergies Allergy Verified 09/04/24 13:34 Physical Exam Vitals: Vital Signs Temp Pulse Resp BP Pulse Ox 09/05/24 06:06 99.2 F 92 16 141/93 98 09/04/24 22:05 101 H 123/84 96 09/04/24 19:29 108 H 16 160/96 97 Intake and Output 09/05/24 09/05/24 09/05/24 06:59 14:59 22:59 Other: Weight 79.8 kg Results CBC & Chem 7: 09/04/24 07:53 09/04/24 07:53 Labs: Abnormal Lab Results - Last 24 Hours (Table) 09/04/24 Range/Units 08:20 U Cannabinoids Screen Positive A (Negative) Assessment and Plan Time with Patient: Greater than 30
[2024-09-08 07:09] VITALS: BP 136/83; PULSE 97; TEMP 98
--- NOTE | 2024-09-08 10:25 | P.DS ---
Providers Date of admission: 09/04/24 15:05 Expected date of discharge: 09/08/24 Attending physician: Delonte De La Rosa MD Consults: 09/04/24 15:36 Consult Physician Routine Consulting Provider: Feliberto Burleson Consult Reason/Comments: H & P and medical care Do you want consulting provider notified?: Yes Primary care physician: Jesse Haro - Discharge Diagnosis(es) (1) Major depressive disorder with psychotic features Current Visit: Yes Status: Acute Priority: High (2) Anxiety disorder Current Visit: Yes Status: Acute Priority: High (3) Cannabis use disorder, mild, abuse Current Visit: Yes Status: Acute Priority: Medium (4) Nicotine dependence Current Visit: Yes Status: Acute Priority: Low Hospital Course: Admission HPI: Admission note was completed by health underwriter "patient is a 24 yo female, is single, lives with boyfriend in a house, has a baby, unemployed. Patient presented to the hospital yesterday and was evaluated by EPS nurse and as her note "Tawer went in to assess pt. at 1040. Father was at bedside and pt. agreed to have him stay in room for assessment. Pt. is vague and father keeps answering questions. Tawer advised him that we like the pt. to answer the questions and he will have an opportunity to add his thoughts at the end of the interview. Pt. states she had been to [facility] but doesn't remember how long ago. She does states it was before her grandmother in May. Pt. had come to the ER yesterday and was advised to follow up with [facility] and [facility] on Friday. Pt. did call [facility] last night and she states they told her about a place in [place] but she doesn't know why. Pt. came to the ER today with complaints of chest pain and numbness radiating down her L arm. Pt. father said that if she could have be medically cleared for her heart she might feel better. Pt. co anxiety and was given Ativan in the ER. Pt. had given earlier this month and health underwriter discussed post depression with pt. Pt. had been prescribed Zo lort by Dr. Humphries but she didn't want to take it but admits took once this am. Talked with pt. about antidepressants and the importance of taking them daily and that some times it takes a while for them to be fully effective. Pt. states "I want willies" Per pt. she had taken Wellbutrin years ago but was not perscribed for her. Pt. denies any SOY but states she isn't sleeping well. Pt. states the family helps with the baby so the lack of sleep is from restlessness. " Patient was agreeable to be seen today by health underwriter for psychiatric H and P. she claims that she felt like she was having a "heart attack" yesterday and states that she told her dad who brought her into the hospital. She was positive for THC in her urine. Claims that she was also having chest pain when she came into the hospital that resolved. States that she gave on August 13 has been dealing with "" issues claims that her mood has been unstable and also having anxiety. States that she has been struggling mentally. Claims that she was prescribed Zoloft by her IMPROVEMENT COORDINATOR however has not been taking it. She is minimizing her depression. She was somewhat bizarre during conversations, had poor eye contact, hesitant and some illogical thoughts. She was not endorsing any paranoia did not endorse delusions. States that she was feeling suicidal when she came in and claims that she had a plan to cut herself if she was discharged.. Patient denies any current suicidal or homicidal ideations intent or plan. At this time patient denies any auditory or visual hallucinations. Patient denies any flight of ideas racing thoughts and increased in goal directed behavior. Patient admits to using vape nicotine products. She states that she does not use any other recreational drug use" Hospital course: Upon admission to the unit patient was directable and agreeable to commence treatment and signed adult voluntary form. Patient was initially bizarre however with time of treatment she eventually got along well with other patients on the unit and followed unit protocol. Patient was compliant with the medications and denied any side effects throughout hospital course. Patient was started on Zoloft 50 mg nightly for mood/anxiety, Seroquel 50 mg nightly for mood stabilization/insomnia/psychosis, Atarax as needed for anxiety, trazodone as needed for sleep. Patient spoke of her stressors and engaged in therapy both group and individual. Patient was also seen by medical team for history and physical exam. Throughout the course of the hospitalization patient gradually improved with regards to mood, anxiety, psychosis, sleep and returned back to their baseline level of functioning. On the day of discharge patient denied any suicidal or homicidal ideations intent or plan denied any auditory or visual hallucinations. Patient endorsed wanting to live for their health and family. The patient denied any access to guns or weapons. Patient denied any paranoia and did not endorse any delusions. Patient does have a significant history of substance abuse and was counseled on abstaining from all substances including alcohol and marijuana. Patient elected to do outpatient substance use treatment program through their outpatient provider.. Patient was also counseled on the medications and need for regular compliance and was encouraged to follow-up with their outpatient appointment for mental health and also for primary care. Prior to discharge a family meeting will be arranged by socially responsible investment adviser to answer any questions and ensure safety upon discharge incuding making sure that guns/weapons are either removed from the home or locked away. Patient will be discharged today back home her father will pick her up. Mental status exam: General Appearance: Patient appears to be stated age is alert, pleasant, and cooperative. Patient is in no acute distress and has improved hygiene and grooming Behavior: Patient is calmly seated without any agitated behavior. Speech: Patient's speech is fluent and nonpressured. Mood/Affect: Patient reports their mood is "better", affect is congruent and euthymic. Suicidality/Homicidality: Patient denies having any suicidal or homicidal ideation intent or plan. Perceptions: Patient denies any auditory or visual hallucinations. Though content/process: There is no evidence of any delusional thought content and thought process is linear and goal-directed. More future oriented Memory and concentration: AOX3, grossly intact for the purposes of this session. Can spell "WORLD" backwards correctly. Judgment and insight: improved with guarded prognosis Impression: Major depressive disorder with psychotic features Anxiety disorder unspecified Cannabis use disorder mild abuse Nicotine dependence Plan: -Continue with discharge today as patient has improved and stabilized psychiatrically and is not currently an imminent threat to themself and/or others. Patient will remain at chronically elevated risk for harm to self and/or others due to their impulsivity and substance abuse. -Continue medications: Zoloft 50 mg nightly for mood/anxiety, Seroquel 50 mg nightly for mood stabilization/insomnia/psychosis, Atarax 25 mg daily as needed for anxiety, trazodone 50 mg nightly for sleep -Patient was counseled on the need for medication compliance and appropriate follow-up at mental health and also primary care for medical issues. Patient verbalized understanding and agreed. -Social work to arrange for and conduct family meeting to ensure safety upon discharge and answer any questions/concerns. also to ensure safe home envi ronment that guns/weapons are either removed from the home or locked away. Social work also to arrange for patients follow up appointments for psychiatric care along with follow up with primary care provider. -Patient counseled on abstaining from recreational drugs and marijuana and alcohol. Was informed/educated on the adverse effects on their physical and mental health. Patient verbally agreed and understood. -Patient was instructed to return to the hospital or seek immediate medical care if their psychiatric or medical symptoms do worsen or reoccur. Allergies Allergy/AdvReac Type Severity Reaction Status Date / Time No Known Allergies Allergy Verified 09/04/24 13:34 Laboratory Results WBC 10.2 k/uL (3.8-10.6) 09/04/24 07:53 RBC 4.56 m/uL (3.80-5.40) 09/04/24 07:53 Hgb 13.0 gm/dL (11.4-16.0) 09/04/24 07:53 Hct 39.3 % (34.0-46.0) 09/04/24 07:53 MCV 86.2 fL (80.0-100.0) 09/04/24 07:53 MCH 28.6 pg (25.0-35.0) 09/04/24 07:53 MCHC 33.2 g/dL (31.0-37.0) 09/04/24 07:53 RDW 13.2 % (11.5-15.5) 09/04/24 07:53 Plt Count 340 k/uL (150-450) 09/04/24 07:53 MPV 7.2 09/04/24 07:53 Neutrophils % 83 % 09/04/24 07:53 Lymphocytes % 11 % 09/04/24 07:53 Monocytes % 4 % 09/04/24 07:53 Eosinophils % 1 % 09/04/24 07:53 Basophils % 0 % 09/04/24 07:53 Neutrophils # 8.5 k/uL (1.3-7.7) H 09/04/24 07:53 Lymphocytes # 1.1 k/uL (1.0-4.8) 09/04/24 07:53 Monocytes # 0.4 k/uL (0-1.0) 09/04/24 07:53 Eosinophils # 0.1 k/uL (0-0.7) 09/04/24 07:53 Basophils # 0.0 k/uL (0-0.2) 09/04/24 07:53 PT 11.1 sec (10.0-12.5) 09/04/24 08:37 INR 1.0 (<1.2) 09/04/24 08:37 APTT 23.7 sec (22.0-30.0) 09/04/24 08:37 Fibrinogen 342 mg/dL (200-500) 09/04/24 08:37 D-Dimer 0.30 mg/L FEU (<0.60) 09/05/24 17:26 Sodium 141 mmol/L (137-145) 09/04/24 07:53 Potassium 4.1 mmol/L (3.5-5.1) 09/04/24 07:53 Chloride 107 mmol/L (98-107) 09/04/24 07:53 Carbon Dioxide 21 mmol/L (22-30) L 09/04/24 07:53 Anion Gap 13 mmol/L 09/04/24 07:53 BUN 8 mg/dL (7-17) 09/04/24 07:53 Creatinine 0.72 mg/dL (0.52-1.04) 09/04/24 07:53 Est GFR (CKD-EPI)AfAm >90 (>60 ml/min/1.73 sqM) 09/04/24 07:53 Est GFR (CKD-EPI)NonAf >90 (>60 ml/min/1.73 sqM) 09/04/24 07:53 Glucose 98 mg/dL (74-99) 09/04/24 07:[address] Glu mg/dL 108 mg/dL 09/05/24 13:04 Hemoglobin A1c 5.4 % (<=6.0) 09/05/24 13:04 Uric Acid 4.4 mg/dL (3.7-7.4) 09/04/24 07:53 Calcium 10.3 mg/dL (8.4-10.2) H 09/04/24 07:53 Magnesium 1.9 mg/dL (1.6-2.3) 09/04/24 07:53 Total Bilirubin 0.5 mg/dL (0.2-1.3) 09/04/24 07:53 AST 28 U/L (14-36) 09/04/24 07:53 ALT 31 U/L (4-34) 09/04/24 07:53 Alkaline Phosphatase 91 U/L (38-126) 09/04/24 07:53 Lactate Dehydrogenase 197 U/L (120-246) 09/04/24 07:53 Troponin I <0.012 ng/mL (0.000-0.034) 09/04/24 07:53 NT-Pro-B Natriuret Pep <20 pg/mL 09/05/24 17:26 Total Protein 8.5 g/dL (6.3-8.2) H 09/04/24 07:53 Albumin 5.0 g/dL (3.5-5.0) 09/04/24 07:53 Triglycerides 71.90 mg/dL (0.00-149.00) 09/05/24 13:04 Cholesterol 132.00 mg/dL (0.00-200.00) 09/05/24 13:04 LDL Cholesterol, Calc 66.3 mg/dL (0.0-131.0) 09/05/24 13:04 VLDL Cholesterol, Calc 14.38 mg/dL (5.00-40.00) 09/05/24 13:04 HDL Cholesterol 51.30 mg/dL (40.00-60.00) 09/05/24 13:04 Cholesterol/HDL Ratio 2.57 Ratio 09/05/24 13:04 TSH 1.550 mIU/L (0.465-4.680) 09/05/24 13:04 Urine Color Colorless 09/04/24 08:20 Urine Appearance Clear (Clear) 09/04/24 08:20 Urine pH 5.5 (5.0-8.0) 09/04/24 08:20 Ur Specific New Site 1.007 (1.001-1.035) 09/04/24 08:20 Urine Protein Negative (Negative) 09/04/24 08:20 Urine Glucose (UA) Negative (Negative) 09/04/24 08:20 Urine Ketones 1+ (Negative) H 09/04/24 08:20 Urine Blood Large (Negative) H 09/04/24 08:20 Urine Nitrite Negative (Negative) 09/04/24 08:20 Urine Bilirubin Negative (Negative) 09/04/24 08:20 Urine Urobilinogen <2.0 mg/dL (<2.0) 09/04/24 08:20 Ur Leukocyte Esterase Negative (Negative) 09/04/24 08:20 Urine RBC 19 /hpf (0-5) H 09/04/24 08:20 Urine WBC 4 /hpf (0-5) 09/04/24 08:20 Ur Squamous Epith Cells 1 /hpf (0-4) 09/04/24 08:20 Urine Mucus Rare /hpf (None) H 09/04/24 08:20 Urine Creatinine 67.0 mg/dL 09/04/24 08:20 Protein/Creatinin Ratio 0.254 09/04/24 08:20 Urine Total Protein 17.0 mg/dL 09/04/24 08:20 Urine HCG, Qual Not Detected (Not Detectd) 09/04/24 08:20 Urine Opiates Screen Negative (Negative) 09/04/24 08:20 Urine Methadone Screen Negative (Negative) 09/04/24 08:20 Ur Propoxyphene Screen Negative (Negative) 09/04/24 08:20 Urine Barbiturates Negative (Negative) 09/04/24 08:20 Ur Phencyclidine Scrn Negative (Negative) 09/04/24 08:20 Ur Amphetamine Screen Negative (Negative) 09/04/24 08:20 U Benzodiazepines Scrn Negative (Negative) 09/04/24 08:20 Urine Cocaine Screen Negative (Negative) 09/04/24 08:20 U Cannabinoids Screen Positive (Negative) A 09/04/24 08:20 Urine Alcohol Negative (Negative) 09/04/24 08:20 Serum Alcohol <10 mg/dL 09/04/24 08:37 U Creatinine Drug Scrn 67.7 mg/dL (>=20.0) 09/04/24 08:20 Influenza Type A (PCR) Not Detected (Not Detectd) 09/04/24 05:13 Influenza Type B (PCR) Not Detected (Not Detectd) 09/04/24 05:13 RSV (PCR) Not Detected (Not Detectd) 09/04/24 05:13 SARS-CoV-2 (PCR) Not Detected (Not Detectd) 09/04/24 05:13 Vital Signs Temp 98.0 F 09/08/24 07:08 Pulse 97 09/08/24 07:08 Resp 16 09/08/24 07:08 BP 136/83 09/08/24 07:08 Pulse Ox 98 09/08/24 07:08 FiO2 Patient Condition at Discharge: Stable Plan - Discharge Summary New Discharge Prescriptions: New traZODone HCL [Desyrel] 50 mg PO HS PRN 30 Days #30 tab PRN Reason: Insomnia QUEtiapine [SEROquel] 50 mg PO HS 30 Days #30 tab Sertraline [Zoloft] 50 mg PO HS 30 Days #30 tab hydrOXYzine pamoate [Vistaril] 50 mg PO Q6H PRN #30 capsule PRN Reason: Anxiety hydrALAZINE HCL [Apresoline] 25 mg PO BID 30 Days #60 tab hydrOXYzine HCL [Atarax] 25 mg PO DAILY PRN 30 Days #30 tab PRN Reason: Anxiety Nicotine 14Mg/24Hr Patch [Habitrol] 1 patch TRANSDERM DAILY 14 Days #14 patch Metoprolol Tartrate [Lopressor] 50 mg PO BID 30 Days #60 tab Discontinued Sertraline [Zoloft] 50 mg PO DAILY Labetalol [Trandate] 200 mg PO TID Discharge Medication List hydrOXYzine pamoate [Vistaril] 50 mg PO Q6H PRN #30 capsule 09/04/24 [Rx] Metoprolol Tartrate [Lopressor] 50 mg PO BID 30 Days #60 tab 09/08/24 [Rx] Nicotine 14Mg/24Hr Patch [Habitrol] 1 patch TRANSDERM DAILY 14 Days #14 patch 09/08/24 [Rx] QUEtiapine [SEROquel] 50 mg PO HS 30 Days #30 tab 09/08/24 [Rx] Sertraline [Zoloft] 50 mg PO HS 30 Days #30 tab 09/08/24 [Rx] hydrALAZINE HCL [Apresoline] 25 mg PO BID 30 Days #60 tab 09/08/24 [Rx] hydrOXYzine HCL [Atarax] 25 mg PO DAILY PRN 30 Days #30 tab 09/08/24 [Rx] traZODone HCL [Desyrel] 50 mg PO HS PRN 30 Days #30 tab 09/08/24 [Rx] Follow up Appointment(s)/Referral(s): [facility] Daugherty [Outside] - 09/17/24 11:00 am ([place]) Jesse Haro MD [Primary Care Provider] - 1-2 days Patient Instructions/Handouts: Depression (DC), Noncardiac Chest Pain (ED) Activity/Diet/Wound Care/Special Instructions: Return to the emergency department with any new, worsening, or concerning symptoms. Continue taking the Zoloft that was prescribed. You can start taking the trazodone before bed each night to help with your insomnia. If one tablet is not effective you can increase this to 2 tablets. Take the hydroxyzine up to every 6 hours as needed for feelings of anxiety. Follow up with your primary care provider in 1-2 days. Avoid the use of street drugs and alcohol. Take all medications as prescribed. When you are in need of refills on your medications, please contact your medical provider and/or outpatient psychiatrist/provider to have this done. Please go to your scheduled outpatient appointment for aftercare treatment. If symptoms return or become worse, call the crisis line at and/or go to the nearest emergency room for evaluation. National Suicide Hotline 547 Discharge Disposition: HOME SELF-CARE
== END 2024-09-08 11:55 | disposition home or self-care (01) | DRG 561 ==
LOC: EC 05:05 → 3MHU 15:05
PROVIDERS: ADMIT Psychiatry & Neurology Psychiatry; ATTEND Psychiatry & Neurology Psychiatry
DX: O99.345 Other mental disorders complicating the puerperium (principal); F32.3 Major depressive disorder, single episode, severe with psychotic features; F12.10 Cannabis abuse, uncomplicated; F17.290 Nicotine dependence, other tobacco product, uncomplicated; F41.9 Anxiety disorder, unspecified; G47.00 Insomnia, unspecified; R00.0 Tachycardia, unspecified; J06.9 Acute upper respiratory infection, unspecified; M54.12 Radiculopathy, cervical region; O16.5 Unspecified maternal hypertension, complicating the puerperium; O99.333 Smoking (tobacco) complicating pregnancy, third trimester; O99.335 Smoking (tobacco) complicating the puerperium; R45.851 Suicidal ideations; Z91.199 Patient's noncompliance with other medical treatment and regimen due to unspecified reason; T46.5X6A Underdosing of other antihypertensive drugs, initial encounter; T43.226A Underdosing of selective serotonin reuptake inhibitors, initial encounter; F90.9 Attention-deficit hyperactivity disorder, unspecified type; Z11.52 Encounter for screening for COVID-19; Z91.128 Patient's intentional underdosing of medication regimen for other reason; Z56.0 Unemployment, unspecified; Z28.310 Unvaccinated for COVID-19; Z28.21 Immunization not carried out because of patient refusal; Z71.89 Other specified counseling
CPT/HCPCS: 36415; 71046; 80053; 80061; 80306; 80320; 81001; 81025; 82570; 83036; 83615; 83735; 83880; 84156; 84443; 84484; 84550; 85025; 85379; 85384; 85610; 85730; 87636; 93005; 96374; 96375; 99285